=== PATIENT | female | born 1965 | race Caucasian/White ===

== ENCOUNTER 2017-06-23 16:22 | Inpatient (IN) | payer MEDICAID, MEDICARE, OTHER ==
[~2017-06-23] VITALS: Ht 165.1 cm; Wt 79.4 kg
[2017-06-23 16:34] VITALS: BP 156/96; PULSE 117; RESP 20; TEMP 98.2; O2SAT 96
[2017-06-23] MEDS ORDERED: SODIUM CHLOR 0.9% 1000 ML INJ 1,000 ML IV SCH (16:41)
[2017-06-23] MEDS ORDERED: ONDANSETRON HCL 4 MG/2 ML VIAL IVP ONE (16:45)
[2017-06-23] MEDS ORDERED: MORPHINE SULFATE 4 MG/ML INJ IV PUSH ONE ×2 (16:45→17:45)
[2017-06-23] MEDS ORDERED: LISI-515 PO (16:49)
[2017-06-23] MEDS ORDERED: CYMB60CA PO (16:49)
[2017-06-23] MEDS ORDERED: ADVA500A INH (16:49)
[2017-06-23] MEDS ORDERED: ALBUAER3 INH (16:49)
[2017-06-23] MEDS ORDERED: MONT10TA2 PO (16:49)
[2017-06-23 17:07] VITALS: O2SAT 97
--- NOTE | 2017-06-23 17:07 | PD ---
HPI Chief Complaint: GI Complaint Time Seen by Provider: 16:41 Travel History International Travel<30 days: No Contact w/Intl Traveler<30days: No Traveled to known affect area: No History of Present Illness HPI Patient gives a history of intermittent episodes of abdominal pain and left flank pain since about a month ago. Today the patient stated that she could just no longer take the pain, and she also noted some bright red blood per stool. She describes the pain as sharp, left flank radiating towards the front , 8 out of 10. Patient denies any associated alleviating or aggravating factors. Patient denies any associated factors such as fever, nausea vomiting, chest pain, headache. Primary care physician is Dr. Sutherland No known drug allergy Past medical history significant for hypertension, appendectomy, 2 hernia repairs colitis, patient is not on any maintenance medication for her colitis. PFSH Past Medical History Asthma: Yes Autoimmune Disease: Yes (UC) Anxiety: Yes Hypertension: Yes Tetanus Vaccination: Unknown Influenza Vaccination: No ?: Not Past Surgical History Abdominal Surgery: Yes (HERNIA REPAIR X 2) Appendectomy: Yes Other Surgery: Yes (THROAT SX) Social History Alcohol Use: Yes (2X WEEK) Tobacco Use: Yes (1-2 PPD) Substance Use: No Allergies-Medications (Allergen,Severity, Reaction): Coded Allergies: No Known Allergies (Unverified , 06/23/17) Reported Meds & Prescriptions Reported Meds & Active Scripts Active Reported Advair Diskus Inh (Fluticasone-Salmeterol Inh) 500-50 Mcg/Blist Aer 1 Puff INH BID Rinse mouth after use. Proair Hfa 8.5 GM Inh (Albuterol Sulfate) 90 Mcg/Act Aer 1 Puff INH Q4H PRN 108 mcg/actuation Cymbalta DR (Duloxetine HCl) 60 Mg Capdr 60 Mg PO BID Lisinopril 20 Mg Tab 20 Mg PO DAILY Singulair (Montelukast Sodium) 10 Mg Tab 10 Mg PO HS Review of Systems General / Constitutional: No: Fever Eyes: No: Visual changes HENT: No: Headaches Cardiovascular: No: Chest Pain or Discomfort Respiratory: No: Shortness of Breath Gastrointestinal: No: Abdominal Pain Genitourinary: Positive: Flank Pain Musculoskeletal: No: Pain Skin: No Rash Neurologic: No: Weakness Psychiatric: No: Depression Endocrine: No: Polydipsia Hematologic/Lymphatic: No: Easy Bruising Physical Exam Narrative GENERAL: SKIN: Warm and dry. HEAD: Atraumatic. Normocephalic. EYES: Pupils equal and round. No scleral icterus. No injection or drainage. ENT: No nasal bleeding or discharge. Mucous membranes pink and moist. NECK: Trachea midline. No JVD. CARDIOVASCULAR: Regular rate and rhythm. RESPIRATORY: No accessory muscle use. Clear to auscultation. Breath sounds equal bilaterally. GASTROINTESTINAL: Abdomen soft, non-tender, nondistended. RN at bedside during examination, rectal was grossly positive and heme-positive as well MUSCULOSKELETAL: Extremities without clubbing, cyanosis, or edema. No obvious deformities. NEUROLOGICAL: Awake and alert. No obvious cranial nerve deficits. Motor grossly within normal limits. Five out of 5 muscle strength in the arms and legs. Normal speech. PSYCHIATRIC: Appropriate mood and affect; insight and judgment normal. Data Data Last Documented VS Vital Signs Date Time Temp Pulse Resp B/P (MAP) Pulse Ox O2 Delivery O2 Flow Rate FiO2 06/23/17 17:07 97 Room Air 06/23/17 16:34 98.2 117 20 156/96 (116) Orders Orders Complete Blood Count With Diff (06/23/17 16:41) Comprehensive Metabolic Panel (06/23/17 16:41) Lipase (06/23/17 16:41) Prothrombin Time / Inr (Pt) (06/23/17 16:41) Act Partial Throm Time (Ptt) (06/23/17 16:41) Ct Abd/Pel W/O Iv Contrast (06/23/17 16:41) Iv Access Insert/Monitor (06/23/17 16:41) Ecg Monitoring (06/23/17 16:41) Oximetry (06/23/17 16:41) NPO (06/23/17 16:41) Morphine Inj (Morphine Inj) (06/23/17 16:45) Ondansetron Inj (Zofran Inj) (06/23/17 16:45) Sodium Chlor 0.9% 1000 Ml Inj (Ns 1000 M (06/23/17 16:41) Type And Screen (06/23/17 16:41) Ct Thorax/ Chest Wo Iv Contras (06/23/17 17:28) Morphine Inj (Morphine Inj) (06/23/17 17:45) Admit To Inpatient (06/23/17 ) Vital Signs (Adult) TREVON.Q4H (06/23/17 18:26) Activity Oob With Assistance (06/23/17 18:26) Inpatient Certification (06/23/17 ) Consult Medical Oncology (06/23/17 ) Albuterol Hfa Inh (Proair Hfa Inh) (06/23/17 18:30) Duloxetine Dr (Oliverallillie Jacobo) (06/23/17 21:00) Montelukast (Singulair) (06/23/17 21:00) (Nf) Fluticasone-Salmeterol Inh (Advair (06/23/17 21:00) Complete Blood Count With Diff (06/24/17 06:00) Admit Order (Ed Use Only) (06/23/17 18:30) Consult Gastroenterology (06/23/17 ) Npo After Midnight W/ Po Meds (06/23/17 Dinner) Acetamin-Hydrocod 325-7.5 Mg ([place] 7.5 (06/23/17 18:45) Morphine Inj (Morphine Inj) (06/23/17 18:45) (Hub Use Only)Inp Phy Cons/Ref (06/23/17 ) (Hub Use Only)Inp Phy Cons/Ref (06/23/17 ) Labs Laboratory Tests Test 06/23/17 16:55 White Blood Count 13.6 TH/MM3 Red Blood Count 4.72 MIL/MM3 Hemoglobin 13.3 GM/DL Hematocrit 39.5 % Mean Corpuscular Volume 83.8 FL Mean Corpuscular Hemoglobin 28.2 PG Mean Corpuscular Hemoglobin Concent 33.7 % Red Cell Distribution Width 12.4 % Platelet Count 329 TH/MM3 Mean Platelet Volume 8.2 FL Neutrophils (%) (Auto) 70.0 % Lymphocytes (%) (Auto) 16.6 % Monocytes (%) (Auto) 4.7 % Eosinophils (%) (Auto) 4.8 % Basophils (%) (Auto) 3.9 % Neutrophils # (Auto) 9.5 TH/MM3 Lymphocytes # (Auto) 2.3 TH/MM3 Monocytes # (Auto) 0.6 TH/MM3 Eosinophils # (Auto) 0.7 TH/MM3 Basophils # (Auto) 0.5 TH/MM3 CBC Comment DIFF FINAL Differential Comment Prothrombin Time 10.2 SEC Prothromb Time International Ratio 1.0 RATIO Activated Partial Thromboplast Time 27.0 SEC Blood Urea Nitrogen 11 MG/DL Creatinine 0.59 MG/DL Random Glucose 98 MG/DL Total Protein 7.7 GM/DL Albumin 3.4 GM/DL Calcium Level 8.7 MG/DL Alkaline Phosphatase 97 U/L Aspartate Amino Transf (AST/SGOT) 10 U/L Alanine Aminotransferase (ALT/SGPT) 15 U/L Total Bilirubin 0.4 MG/DL Sodium Level 137 MEQ/L Potassium Level 3.7 MEQ/L Chloride Level 106 MEQ/L Carbon Dioxide Level 23.9 MEQ/L Anion Gap 7 MEQ/L Estimat Glomerular Filtration Rate 107 ML/MIN Lipase 89 U/L MDM Medical Decision Making Medical Screen Exam Complete: Yes Emergency Medical Condition: Yes Medical Record Reviewed: Yes Differential Diagnosis Renal colic versus pyelonephritis versus UTI versus colitis versus diverticulitis versus perforation versus abscess Narrative Course CBC shows mild leukocytosis of 13.6, but without any left shift, no anemia and normal platelet count Coagulation profile within normal limits Electrolytes within normal limits, normal kidney liver and pancreatic functions Currently CT abdomen pelvis and chest are pending as of 173 CT abdomen shows a large mass in the medial segment of the right middle lobe, large left adrenal mass with numerous lymph nodes in the left periaortic region as per radiology report 1758 CT chest shows large mass medial aspect right middle lobe malignant until proven otherwise 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 Diagnosis Primary Impression: Right lung mass Additional Impression: Left adrenal mass Admitting Information Admitting Physician Requests: Admit Jonathan López MD Jun 23, 2017 17:07
[2017-06-23 17:10] LABS: AUTOMATED NEUTROPHIL # 9.5 TH/MM3 (1.8-7.7); BASOPHIL # 0.5 TH/MM3 (0-0.2); BASOPHIL % 3.9 % (0.0-2.0); EOSINOPHIL # 0.7 TH/MM3 (0-0.4); EOSINOPHIL % 4.8 % (0.0-4.0); HEMATOCRIT 39.5 % (35.0-46.0); HEMOGLOBIN 13.3 GM/DL (11.6-15.3); LYMPH % 16.6 % (9.0-44.0); LYMPHOCYTE # 2.3 TH/MM3 (1.0-4.8); MEAN CELL VOLUME 83.8 FL (80.0-100.0); MEAN CORPUSCULAR HEMOGLOBIN 28.2 PG (27.0-34.0); MEAN CORPUSCULAR HGB CONC 33.7 % (32.0-36.0); MEAN PLATELET VOLUME 8.2 FL (7.0-11.0); MONO % 4.7 % (0.0-8.0); MONOCYTE # 0.6 TH/MM3 (0-0.9); PLATELET COUNT 329 TH/MM3 (150-450); RED BLOOD COUNT 4.72 MIL/MM3 (4.00-5.30); RED CELL DISTRIBUTION WIDTH 12.4 % (11.6-17.2); WHITE BLOOD COUNT 13.6 TH/MM3 (4.0-11.0)
[2017-06-23 17:18] LABS: CHLORIDE 106 MEQ/L (98-107); SODIUM (NA) 137 MEQ/L (136-145)
[2017-06-23 17:21] LABS: CALCIUM 8.7 MG/DL (8.5-10.1)
[2017-06-23 17:22] LABS: ALBUMIN 3.4 GM/DL (3.4-5.0); BICARBONATE 23.9 MEQ/L (21.0-32.0); BLOOD UREA NITROGEN 11 MG/DL (7-18); GLUCOSE,RANDOM 98 MG/DL (74-106)
[2017-06-23 17:23] LABS: PROTHROMBIN TIME - PATIENT 10.2 SEC (9.8-11.6)
[2017-06-23 17:25] LABS: ALT (GPT) 15 U/L (10-53); AST (GOT) 10 U/L (15-37); CREATININE 0.59 MG/DL (0.50-1.00); GLOMERULAR FILTRATION RATE 107 ML/MIN (>89)
[2017-06-23 17:26] LABS: TOTAL BILIRUBIN ADULT 0.4 MG/DL (0.2-1.0); TOTAL PROTEIN 7.7 GM/DL (6.4-8.2)
[2017-06-23 17:28] LABS: ALKALINE PHOSPHATASE 97 U/L (45-117)
--- NOTE | 2017-06-23 17:48 | RADRPT ---
EXAM DATE/TIME: 06/23/2017 17:18 [facility] COMPARISON: No previous studies available for comparison. INDICATIONS : Nausea, vomiting with left flank pain. ORAL CONTRAST: No oral contrast ingested. RADIATION DOSE: 17.44 CTDIvol (mGy) MEDICAL HISTORY : None SURGICAL HISTORY : Hernia repair. ENCOUNTER: Initial ACUITY: 1 month PAIN SCALE: 6/10 LOCATION: Left flank TECHNIQUE: Volumetric scanning of the abdomen and pelvis was performed. Using automated exposure control and ad justment of the mA and/or kV according to patient size, radiation dose was kept as low as reasonably achievable to obtain optimal diagnostic quality images. DICOM format image data is available electro nically for review and comparison. FINDINGS: LOWER LUNGS: There is abrupt cutoff of the medial segment of the right middle lobe bronchus with a peripheral mass almost certainly malignant measuring 5 x 7.6 cm across. LIVER: Homogeneous density without lesion. There is no dilation of the biliary tree. No calcified gallston es. SPLEEN: Normal size without lesion. PANCREAS: Within normal limits. KIDNEYS: The left kidney is enlarged with significant perinephric stranding. There is a left perihilar mass wi th conceivably could be obstructing the left renal vein. There number of lymph nodes in the left para renal region ADRENAL GLANDS: 5.5 x 6.7 cm mass in the left adrenal gland almost certainly metastatic lesion.. VASCULAR: There is no aortic aneurysm. BOWEL/MESENTERY: The stomach, small bowel, and colon demonstrate no acute abnormality. There is no free intraperitone al air or fluid. ABDOMINAL WALL: Within normal limits. RETROPERITONEUM: There is no lymphadenopathy. BLADDER: No wall thickening or mass. REPRODUCTIVE: Within normal limits. INGUINAL: There is no lymphadenopathy or hernia. MUSCULOSKELETAL: Within normal limits for patient age. CONCLUSION: Large mass in the medial segment of the right middle lobe. Large left adrenal mass with numerous lymp h nodes in the left periaortic region. Neeraj Norwood MD on June 23, 2017 at 17:39 Board Certified Radiologist. This report was verified electronically.
--- NOTE | 2017-06-23 17:50 | RADRPT ---
EXAM DATE/TIME: 06/23/2017 17:26 [facility] COMPARISON: No previous studies available for comparison. INDICATIONS : Abdnormal lung findings. Previous hemoptysis. Evaluate for mass. RADIATION DOSE: 13.31 CTDIvol (mGy) MEDICAL HISTORY : None SURGICAL HISTORY : Hernia repair. ENCOUNTER: Initial ACUITY: 1 day PAIN SCALE: 0/10 LOCATION: chest TECHNIQUE: Volumetric scanning of the chest was performed. Using automated exposure control and adjustment of t he mA and/or kV according to patient size, radiation dose was kept as low as reasonably achievable to obtain optimal diagnostic quality images. DICOM format image data is available electronically for r eview and comparison. Follow-up recommendations for detected pulmonary nodules are based at a minimum on nodule size and pa tient risk factors according to Fleischner Society Guidelines. FINDINGS: LUNGS: 6.2 x 7.9 cm mass in the medial right middle lobe. There is some surrounding obstructive pneumonitis. Bronchoscopy with attention to the medial segment right middle lobe bronchus is recommended. There n umber of positive mediastinal lymph nodes as well. The left lung is clear. Right lower lobe is clear. PLEURAE: There is no pleural thickening or pleural effusion. MEDIASTINUM: Prominent lymph nodes in the middle mediastinum including a 3 cm right paratracheal lymph node. AXILLAE: Within normal limits. No lymphadenopathy. MUSCULOSKELETAL: Within normal limits for patient age. MISCELLANEOUS: Large left adrenal mass metastatic disease to otherwise.. CONCLUSION: Large mass medial aspect right middle lobe, malignant til proven otherwise. 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 Neeraj Norwood MD on June 23, 2017 at 17:46 Board Certified Radiologist. This report was verified electronically.
[2017-06-23] MEDS ORDERED: ALBUTEROL SULFATE 90 MCG/ACT HFA 8 GM INHALER INH PRN (18:30)
[2017-06-23 18:52] VITALS: BP 115/60; PULSE 94; RESP 16; O2SAT 97
[2017-06-23 19:00] VITALS: BP 125/96; PULSE 88; RESP 16; TEMP 98.6; O2SAT 95
[2017-06-23] MEDS: MONTELUKAST SODIUM 10 MG TAB PO SCH (21:31)
[2017-06-23] MEDS: DULoxetine HCl DR 60 MG CAP PO SCH (21:31)
[2017-06-23] MEDS: BUDESONIDE-FORMOTEROL 160/4.5 MCG INHALER INH SCH (21:32)
[2017-06-23] MEDS: MORPHINE SULFATE 4 MG/ML INJ IV PUSH PRN (21:52)
[2017-06-24] VITALS: BP 125/81; PULSE 54; RESP 15; TEMP 97.2; O2SAT 95
[2017-06-24 04:00] VITALS: BP 113/66; PULSE 113; RESP 16; TEMP 98.6; O2SAT 95
[2017-06-24 06:32] LABS: AUTOMATED NEUTROPHIL # 6.7 TH/MM3 (1.8-7.7); BASOPHIL # 0.1 TH/MM3 (0-0.2); BASOPHIL % 1.3 % (0.0-2.0); EOSINOPHIL # 0.9 TH/MM3 (0-0.4); EOSINOPHIL % 9.2 % (0.0-4.0); HEMATOCRIT 35.7 % (35.0-46.0); HEMOGLOBIN 12.1 GM/DL (11.6-15.3); LYMPH % 12.4 % (9.0-44.0); LYMPHOCYTE # 1.2 TH/MM3 (1.0-4.8); MEAN CELL VOLUME 84.2 FL (80.0-100.0); MEAN CORPUSCULAR HEMOGLOBIN 28.5 PG (27.0-34.0); MEAN CORPUSCULAR HGB CONC 33.9 % (32.0-36.0); MEAN PLATELET VOLUME 7.9 FL (7.0-11.0); MONOCYTE # 0.6 TH/MM3 (0-0.9); NEUT % 71.1 % (16.0-70.0); PLATELET COUNT 234 TH/MM3 (150-450); RED BLOOD COUNT 4.24 MIL/MM3 (4.00-5.30); RED CELL DISTRIBUTION WIDTH 12.4 % (11.6-17.2); WHITE BLOOD COUNT 9.5 TH/MM3 (4.0-11.0)
[2017-06-24 08:00] VITALS: BP 134/70; PULSE 83; RESP 20; TEMP 97.4; O2SAT 95
[2017-06-24] MEDS: DULoxetine HCl DR 60 MG CAP PO SCH ×2 (08:02→21:38)
[2017-06-24] MEDS: BUDESONIDE-FORMOTEROL 160/4.5 MCG INHALER INH SCH ×2 (08:04→21:38)
[2017-06-24] MEDS: ACETAMINOPHEN/HYDROcodone 325 MG/7.5 MG TAB PO PRN ×2 (08:04→15:21)
[2017-06-24 11:08] LABS: CARCINOEMBRYONIC ANTIGEN 3.1 NG/ML (0.2-5.0)
[2017-06-24 11:45] LABS: CA 125 17.9 U/ML (0.0-30.2)
[2017-06-24 11:46] LABS: CA 19-9 LESS THAN 1.2 U/ML (0.0-35.0)
[2017-06-24 11:56] LABS: CA 15-3 12.5 U/ML (0.0-32.4)
[2017-06-24 12:00] VITALS: BP 124/73; PULSE 79; RESP 18; TEMP 97.8; O2SAT 95
--- NOTE | 2017-06-24 12:36 | MB ---
cc: Mohamud Mallory MD DATE: 06/24/2017 REASON FOR CONSULTATION: Right lung mass, malignancy suspect. HISTORY OF PRESENT ILLNESS: Ms. Noel is a 52-year-old female who presents to the emergency room with left flank pain and blood in the stool. The patient is being evaluated for same. Chest x-ray and subsequent CT scan of the chest had revealed a large mass in the right middle lobe, as well as a large left adrenal mass with numerous lymph nodes in the left pancreatic region. I am asked to see the patient at this time for same. The patient is a smoker and continues to smoke up until the time of presentation. PAST MEDICAL HISTORY: Hypertension, COPD and/or bronchial asthma, collagen vascular disorder. PAST SURGICAL HISTORY: Previous hernia repair and appendectomy as a child. SOCIAL HISTORY: The patient smokes 1-2 packs a day for the last 30 years or so, has 2 drinks a week, does not use drugs. ALLERGIES: NONE KNOWN TO MEDICATION. MEDICATIONS AT HOME: 1. Include Advair twice daily. 2. ProAir p.r.n. 3. Cymbalta. 4. Lisinopril. 5. Singulair. FAMILY HISTORY: Noncontributory. No history of lung cancer. REVIEW OF SYSTEMS: A 12-point review of systems as per HPI and past history, otherwise negative. PHYSICAL EXAMINATION: GENERAL: Patient alert. VITAL SIGNS: Temperature 98, pulse 90, respirations 20, blood pressure 150/90, oxygen saturation 97% on room air. HEENT: Exam unremarkable. Eyes without icterus. NECK: Without adenopathy, thyroid enlargement. CHEST: A few scattered rhonchi bilaterally. CARDIAC: PMI distant. S1, S2 audible. No murmur. No rub. ABDOMEN: Lax, audible bowel sounds. PSYCHIATRIC: No clubbing, cyanosis, or edema. LABORATORY DATA: White count 13,000; hemoglobin 13; hematocrit 39; platelets 329,000. Sodium 137, potassium 3.7, BUN 11, creatinine 0.6. IMPRESSION: 1. Right lung mass, malignancy suspect. 2. Chronic obstructive pulmonary disease. 3. Tobacco abuse. 4. Hypertension. PLAN: Patient will require tissue diagnosis. Bronchoscopic examination would be the simplest approach at this time. Procedure, complications were discussed with the patient. She is agreeable to proceed at this time. Meanwhile, bronchodilator therapy should be continued. We will follow the patient's course, along with you and depending on progress, proceed further. I do thank you for asking me to partake in Mrs. Noel's care. MD JAMIL Nathan/LIDIA , 11:58 AM , 12:36 PM
[2017-06-24] MEDS ORDERED: IOHEXOL 350 MG/ML 10 ML VIAL (for RAD DIAG) IVCONTRAST ONE (12:52)
--- NOTE | 2017-06-24 12:58 | RADRPT ---
EXAM DATE/TIME: 06/24/2017 12:35 [facility] COMPARISON: No previous studies available for comparison. INDICATIONS : Metastatic workup, right headaches IV CONTRAST: 75 cc Omnipaque 350 (iohexol) IV RADIATION DOSE: 54.77 CTDIvol (mGy) MEDICAL HISTORY : Hypertension. Ulcerative colitis. Asthma SURGICAL HISTORY : Appendectomy. Sami hips, throat. ENCOUNTER: Initial ACUITY: 1 day PAIN SCALE: 3/10 LOCATION: Right cranial TECHNIQUE: Multiple contiguous axial images were obtained of the head. Using automated exposure control and adj ustment of the mA and/or kV according to patient size, radiation dose was kept as low as reasonably a chievable to obtain optimal diagnostic quality images. DICOM format image data is available electro nically for review and comparison. FINDINGS: CEREBRUM: The ventricles are normal for age. No evidence of midline shift, cerebral edema or blood products. No extra-axial fluid collections are seen. POSTERIOR FOSSA: The cerebellum and brainstem are intact. The 4th ventricle is midline. The cerebellar pontine angle is unremarkable. EXTRACRANIAL: The visualized portion of the orbits is intact. SKULL: The calvaria is intact. No evidence of skull fracture. POST CONTRAST: No abnormal areas of parenchymal or dural enhancement. No evidence of blood-brain barrier breakdown. CONCLUSION: No acute disease. Jeff Michel MD on June 24, 2017 at 12:54 Board Certified Radiologist. This report was verified electronically.
--- NOTE | 2017-06-24 14:34 | HHI.HP ---
[facility] No Primary Care Physician Admission Diagnosis LUNG MASS WITH METS TO LEFT ADRENAL Diagnoses: (1) Lung mass Diagnosis: Principal (2) Adrenal mass Diagnosis: Principal (3) Abdominal pain Diagnosis: Principal (4) Flank pain Diagnosis: Principal Travel History International Travel<30 Days: No Contact w/Intl Traveler <30 Da: No Traveled to Known Affected Are: No History of Present Illness Mrs. Noel is a 52-year-old female. She came in the hospital specifically for left sided abdominal pain and flank pain. Etiology of her flank pain she thought would be related to diverticulitis. Imaging showed a right lung mass and left adrenal mass. Etiology at this point is suspected to be related to the left adrenal mass. Masses are suspected to be related to cancer. Patient smokes 1-2 packs of cigarettes per day. No history of cancer in the patient's family. She has a paternal grandmother that had COPD. She also has a paternal grandfather that had coronary artery disease. No other complaints today. No previous history of cancer. No active hemoptysis at this point but she reports that previously about a week ago she had hemoptysis. Review of Systems Constitutional: DENIES: Fatigue, Fever, Chills Eyes: DENIES: Blurred vision, Diplopia, Eye inflammation, Eye pain Respiratory: COMPLAINS OF: Hemoptysis, DENIES: Cough, Snoring, Wheezing Cardiovascular: DENIES: Chest pain, Palpitations, Syncope Gastrointestinal: COMPLAINS OF: Abdominal pain, DENIES: Black stools, Bloody stools Musculoskeletal: DENIES: Joint pain, Muscle aches, Stiffness, Joint Swelling Integumentary: DENIES: Abnormal pigmentation, Pruritus, Rash, Nail changes Hematologic/lymphatic: DENIES: Bruising, Lymphadenopathy Immunologic/allergic: DENIES: Eczema, Urticaria Neurologic: DENIES: Abnormal gait, Headache, Paresthesias Psychiatric: DENIES: Anxiety, Confusion, Hallucinations Past Family Social History Past Medical History Asthma Hypertension General anxiety disorder Ulcerative colitis Past Surgical History Hernia repair 2 Appendectomy Throat surgery Reported Medications Reported Meds & Active Scripts Active Reported Advair Diskus Inh (Fluticasone-Salmeterol Inh) 500-50 Mcg/Blist Aer 1 Puff INH BID Rinse mouth after use. Proair Hfa 8.5 GM Inh (Albuterol Sulfate) 90 Mcg/Act Aer 1 Puff INH Q4H PRN 108 mcg/actuation Cymbalta DR (Duloxetine HCl) 60 Mg Capdr 60 Mg PO BID Lisinopril 20 Mg Tab 20 Mg PO DAILY Singulair (Montelukast Sodium) 10 Mg Tab 10 Mg PO HS Allergies: Coded Allergies: No Known Allergies (Unverified , 06/23/17) Active Ordered Medications Administered Medications Medications (Trade) Dose Ordered Sig/Amy Route PRN Reason Start Time Stop Time Status Last Admin Dose Admin Duloxetine HCl (Cymbalta Dr) 60 mg BID PO 06/23/17 21:00 06/24/17 08:02 Montelukast Sodium (Singulair) 10 mg HS PO 06/23/17 21:00 06/23/17 21:31 Budesonide/ Formoterol Fumarate (Symbicort 160-4.5 Mcg Inh) 2 puff BID INH 06/23/17 21:00 06/24/17 08:04 Acetaminophen/ Hydrocodone Bitart ([place] 7.5-325 Mg) 1 tab Q4H PRN PO pain 06/23/17 18:45 06/24/17 08:04 Morphine Sulfate (Morphine Inj) 4 mg Q3H PRN IV PUSH breakthru pain 06/23/17 18:45 06/23/17 21:52 Family History COPD in paternal grandmother Coronary artery disease in maternal grandfather Social History Patient smokes 1-2 packs per day Occasional alcohol use No illicit drug abuse Physical Exam Vital Signs Vital Signs Date Time Temp Pulse Resp B/P (MAP) Pulse Ox O2 Delivery O2 Flow Rate FiO2 06/24/17 12:00 97.8 79 18 124/73 (90) 95 06/24/17 08:00 97.4 83 20 134/70 (91) 95 06/24/17 04:00 98.6 113 16 113/66 (82) 95 06/24/17 00:00 97.2 54 15 125/81 (96) 95 06/23/17 19:35 06/23/17 19:00 98.6 88 16 125/96 (106) 95 06/23/17 18:52 94 16 115/60 (78) 97 Room Air 06/23/17 17:07 97 Room Air 06/23/17 16:34 98.2 117 20 156/96 (116) 96 Physical Exam GENERAL: NAD, A&Ox3 HEAD: Normocephalic. NECK: Supple, trachea midline. No lymphadenopathy. EYES: No scleral icterus. No injection or drainage. CARDIOVASCULAR: Regular rate and rhythm without murmurs, gallops, or rubs. RESPIRATORY: Breath sounds equal bilaterally. No accessory muscle use. GASTROINTESTINAL: Abdomen soft, non-tender, nondistended. MUSCULOSKELETAL: No cyanosis, or edema. SKIN: Warm and dry. NEURO: No focal neurological deficitis. Laboratory Laboratory Tests Test 06/23/17 16:55 06/24/17 06:02 06/24/17 08:09 White Blood Count 13.6 9.5 Red Blood Count 4.72 4.24 Hemoglobin 13.3 12.1 Hematocrit 39.5 35.7 Mean Corpuscular Volume 83.8 84.2 Mean Corpuscular Hemoglobin 28.2 28.5 Mean Corpuscular Hemoglobin Concent 33.7 33.9 Red Cell Distribution Width 12.4 12.4 Platelet Count 329 234 Mean Platelet Volume 8.2 7.9 Neutrophils (%) (Auto) 70.0 71.1 Lymphocytes (%) (Auto) 16.6 12.4 Monocytes (%) (Auto) 4.7 6.0 Eosinophils (%) (Auto) 4.8 9.2 Basophils (%) (Auto) 3.9 1.3 Neutrophils # (Auto) 9.5 6.7 Lymphocytes # (Auto) 2.3 1.2 Monocytes # (Auto) 0.6 0.6 Eosinophils # (Auto) 0.7 0.9 Basophils # (Auto) 0.5 0.1 CBC Comment DIFF FINAL AUTO DIFF Differential Comment AUTO DIFF CONFIRMED Prothrombin Time 10.2 Prothromb Time International Ratio 1.0 Activated Partial Thromboplast Time 27.0 Blood Urea Nitrogen 11 Creatinine 0.59 Random Glucose 98 Total Protein 7.7 Albumin 3.4 Calcium Level 8.7 Alkaline Phosphatase 97 Aspartate Amino Transf (AST/SGOT) 10 Alanine Aminotransferase (ALT/SGPT) 15 Total Bilirubin 0.4 Sodium Level 137 Potassium Level 3.7 Chloride Level 106 Carbon Dioxide Level 23.9 Anion Gap 7 Estimat Glomerular Filtration Rate 107 Lipase 89 Lactate Dehydrogenase 206 Tumor Marker Alpha Fetoprotein 2.5 Carcinoembryonic Antigen 3.1 CA 15-3 Antigen 12.5 CA 19-9 Antigen LESS THAN 1.2 CA 125 Antigen 17.9 Result Diagram: 06/24/17 0602 06/23/17 1655 Imaging Last Impressions Head CT 06/24/17 0000 Signed Impressions: Service Date/Time: Saturday, June 24, 2017 12:35 - CONCLUSION: No acute disease. Jeff Michel MD Chest CT 06/23/17 1728 Signed Impressions: Service Date/Time: Friday, June 23, 2017 17:26 - CONCLUSION: Large mass medial aspect right middle lobe, malignant til proven otherwise. Metastatic disease to left adrenal gland. Neeraj Norwood MD Abdomen/Pelvis CT 06/23/17 1641 Signed Impressions: Service Date/Time: Friday, June 23, 2017 17:18 - CONCLUSION: Large mass in the medial segment of the right middle lobe. Large left adrenal mass with numerous lymph nodes in the left periaortic region. Neeraj Norwood MD Caprezai VTE Risk Assessment Caprini VTE Risk Assessment: Mod/High Risk (score >= 2) Caprini Risk Assessment Model Point Value = 1 Point Value = 2 Point Value = 3 Point Value = 5 Age 41-60 Minor surgery BMI > 25 kg/m2 Swollen legs Varicose veins or History of unexplained or recurrent spontaneous Oral contraceptives or hormone replacement Sepsis (< 1 month) Serious lung disease, including pneumonia (< 1 month) Abnormal pulmonary function Acute myocardial infarction Congestive heart failure (< 1 month) History of inflammatory bowel disease Medical patient at bed rest Age 61-74 Arthroscopic surgery Major open surgery (> 45 min) Laparoscopic surgery (> 45 min) Malignancy Confined to bed (> 72 hours) Immobilizing plaster cast Central venous access Age >= 75 History of VTE Family history of VTE Factor V Leiden Prothrombin [id number] Lupus anticoagulant Anticardiolipin antibodies Elevated serum homocysteine Heparin-induced thrombocytopenia Other congenital or acquired thrombophilia Stroke (< 1 month) Elective arthroplasty Hip, pelvis, or leg fracture Acute spinal cord injury (< 1 month) Prophylaxis Regimen Total Risk Factor Score Risk Level Prophylaxis Regimen 0-1 Low Early ambulation 2 Moderate Order ONE of the following: *Sequential Compression Device (SCD) *Heparin 5000 units SQ BID 3-4 Higher Order ONE of the following medications: *Heparin 5000 units SQ TID *Enoxaparin/Lovenox 40 mg SQ daily (WT < 150 kg, CrCl > 30 mL/min) *Enoxaparin/Lovenox 30 mg SQ daily (WT < 150 kg, CrCl > 10-29 mL/min) *Enoxaparin/Lovenox 30 mg SQ BID (WT < 150 kg, CrCl > 30 mL/min) AND/OR *Sequential Compression Device (SCD) 5 or more Highest Order ONE of the following medications: *Heparin 5000 units SQ TID (Preferred with Epidurals) *Enoxaparin/Lovenox 40 mg SQ daily (WT < 150 kg, CrCl > 30 mL/min) *Enoxaparin/Lovenox 30 mg SQ daily (WT < 150 kg, CrCl > 10-29 mL/min) *Enoxaparin/Lovenox 30 mg SQ BID (WT < 150 kg, CrCl > 30 mL/min) AND *Sequential Compression Device (SCD) Assessment and Plan Problem List: (1) Adrenal mass ICD Code: E27.9 - Disorder of adrenal gland, unspecified (2) Abdominal pain ICD Code: R10.9 - Unspecified abdominal pain (3) Lung mass ICD Code: R91.8 - Other nonspecific abnormal finding of lung field (4) Flank pain ICD Code: R10.9 - Unspecified abdominal pain Assessment and Plan 52-year-old female admitted secondary to abdominal pain with findings of adrenal mass and lung mass, recent hemoptysis. Lung mass Adrenal mass Pulmonology consulted Plan for bronchoscopy Plan for biopsy No signs of metastasis to the brain Hemoptysis Monitor for recurrence Avoid blood thinners Hypertension Continue baseline treatment Follow blood pressures Adjust treatments as needed Asthma General anxiety disorder Ulcerative colitis No exacerbations Continue baseline treatments DVT prophylaxis SCDs Blood thinners avoided secondary to hemoptysis Physician Certification 2 Midnight Certification Type: Admission for Inpatient Services Order for Inpatient Services The services are ordered in accordance with Medicare regulations or non- Medicare payer requirements, as applicable. In the case of services not specified as inpatient-only, they are appropriately provided as inpatient services in accordance with the 2-midnight benchmark. Estimated LOS (days): 3 days is the estimated time the patient will need to remain in the hospital, assuming treatment plan goals are met and no additional complications. Post-Hospital Plan: Home Calderon Burton MD Jun 24, 2017 14:34
[2017-06-24 15:51] VITALS: BP 127/80; PULSE 88; RESP 20; TEMP 97; O2SAT 95
[2017-06-24 20:00] VITALS: BP 118/83; PULSE 82; RESP 18; TEMP 96.9; O2SAT 96
[2017-06-24] MEDS: MONTELUKAST SODIUM 10 MG TAB PO SCH (21:38)
[2017-06-24] MEDS: MORPHINE SULFATE 4 MG/ML INJ IV PUSH PRN (21:56)
[2017-06-24] MEDS ORDERED: ALPRAZolam 0.5 MG TAB PO ONE (22:15)
[2017-06-25] VITALS (7 sets, daily range): BP systolic 125–146; BP diastolic 80–89; PULSE 77–93; RESP 16–20; TEMP 96.8–98.7; O2SAT 93–97
[2017-06-25 07:01] LABS: AUTOMATED NEUTROPHIL # 4.9 TH/MM3 (1.8-7.7); BASOPHIL # 0.1 TH/MM3 (0-0.2); BASOPHIL % 1.2 % (0.0-2.0); EOSINOPHIL # 0.7 TH/MM3 (0-0.4); EOSINOPHIL % 8.8 % (0.0-4.0); HEMATOCRIT 34.9 % (35.0-46.0); HEMOGLOBIN 12.2 GM/DL (11.6-15.3); LYMPH % 16.7 % (9.0-44.0); LYMPHOCYTE # 1.2 TH/MM3 (1.0-4.8); MEAN CELL VOLUME 84.6 FL (80.0-100.0); MEAN CORPUSCULAR HEMOGLOBIN 29.5 PG (27.0-34.0); MEAN CORPUSCULAR HGB CONC 34.8 % (32.0-36.0); MEAN PLATELET VOLUME 8.2 FL (7.0-11.0); MONO % 7.1 % (0.0-8.0); MONOCYTE # 0.5 TH/MM3 (0-0.9); NEUT % 66.2 % (16.0-70.0); PLATELET COUNT 272 TH/MM3 (150-450); RED BLOOD COUNT 4.12 MIL/MM3 (4.00-5.30); RED CELL DISTRIBUTION WIDTH 12.5 % (11.6-17.2); WHITE BLOOD COUNT 7.4 TH/MM3 (4.0-11.0)
[2017-06-25 07:09] LABS: CHLORIDE 109 MEQ/L (98-107); SODIUM (NA) 142 MEQ/L (136-145)
[2017-06-25 07:17] LABS: CALCIUM 8.6 MG/DL (8.5-10.1)
[2017-06-25 07:18] LABS: ALBUMIN 2.9 GM/DL (3.4-5.0); BICARBONATE 29.2 MEQ/L (21.0-32.0); BLOOD UREA NITROGEN 7 MG/DL (7-18); GLUCOSE,RANDOM 102 MG/DL (74-106)
[2017-06-25 07:21] LABS: ALT (GPT) 11 U/L (10-53); AST (GOT) 11 U/L (15-37); CREATININE 0.47 MG/DL (0.50-1.00); GLOMERULAR FILTRATION RATE 139 ML/MIN (>89)
[2017-06-25 07:22] LABS: TOTAL BILIRUBIN ADULT 0.5 MG/DL (0.2-1.0); TOTAL PROTEIN 6.5 GM/DL (6.4-8.2)
[2017-06-25 07:24] LABS: ALKALINE PHOSPHATASE 77 U/L (45-117)
--- NOTE | 2017-06-25 07:48 | MB ---
cc: Nory Kennedy MD DATE: 06/24/2017 CHIEF COMPLAINT: Suspicious for metastatic lung cancer. HISTORY OF PRESENT ILLNESS: Ms. Noel is a 52-year-old lady with a history of depression, anxiety, posttraumatic stress disorder, lung disease, hypertension, and ulcerative colitis, who presented to [facility] on 06/23/2017 with left-sided abdominal and flank pain. CT scan obtained during the emergency room visit revealed that she had a 5.5 x 6.7 cm mass in the adrenal gland, which is almost certainly a metastatic lesion, also revealed numerous lymph nodes in the left paraortic region. CT chest showed a 6.2 x 7.9 cm mass in the medial right lobe with some surrounding obstructive pneumonitis. There are a number of positive mediastinal lymph nodes as well. Head CT obtained with no acute abnormalities. Pulmonary team with Dr. Mallory has been consulted. He will performed a bronchoscopic examination as well since there is evidence that she has some obstruction. LABORATORY STUDIES: Reveal white blood cell count 9.5; hemoglobin 12.1; platelet count is 234,000. Differential with elevated absolute eosinophil count. BMP with normal renal and liver function. Coags also within normal limits. PAST MEDICAL HISTORY: 1. Tobacco abuse. 2. Hypertension. 3. Asthma/chronic obstructive pulmonary disease. 4. Depression/anxiety/PTSD. 5. Hypertension. 6. Ulcerative colitis. PAST SURGICAL HISTORY: 1. Appendectomy. 2. ENT surgery, tooth removal. 3. Hernia repair. SOCIAL HISTORY: The patient reports that she smoked 1-2 pack per day for about the past 30 years. She has 1 to 2 drinks a week. Denies drug use. She moved down to the [facility] from [place] to be near her daughter. She has had limited medical followup over the past several years. ALLERGIES: NO KNOWN DRUG ALLERGIES. HOME MEDICATIONS: 1. Cymbalta. 2. Albuterol inhaler. 3. Advair inhaler. 4. Lisinopril. 5. Singulair. FAMILY HISTORY: No family history of malignancy. REVIEW OF SYSTEMS: As above in the HPI. PHYSICAL EXAMINATION: GENERAL: Well-developed, well-nourished lady, in no acute distress. NECK: Supple. No palpable lymphadenopathy. CHEST: Clear to auscultation bilaterally. CARDIOVASCULAR: Regular rate and rhythm. No murmurs. ABDOMEN: Soft, nontender, nondistended. Bowel sounds present. EXTREMITIES: Without edema. PSYCHIATRIC: Appropriate mood and affect. NEUROLOGIC: Grossly nonfocal. ASSESSMENT AND PLAN: Highly suspicious for metastatic lung cancer. She has been consulted on by the pulmonary team. It appears that her cancer is metastatic to the abdominal lymph nodes as well as the left adrenal gland. There is evidence of some obstruction. She has been evaluated by Dr. Mallory, who will plan for bronchoscopy which will provide us with the simplest method of both obtaining a tissue diagnosis, as well as relieving any obstruction that would be present in her right middle lobe. Inpatient oncology service will continue to follow and once true pathologic diagnosis by team, we will discuss further treatment and management. MD CHRISTO Rothman/LIDIA , 05:50 AM , 07:48 AM LINDA
[2017-06-25] MEDS: BUDESONIDE-FORMOTEROL 160/4.5 MCG INHALER INH SCH ×2 (08:48→21:17)
[2017-06-25] MEDS: ACETAMINOPHEN/HYDROcodone 325 MG/7.5 MG TAB PO PRN ×3 (08:49→21:18)
[2017-06-25] MEDS: DULoxetine HCl DR 60 MG CAP PO SCH ×2 (08:49→21:17)
[2017-06-25] MEDS ORDERED: MAGNESIUM HYDROXIDE SUSP 30 ML CUP PO PRN (09:15)
[2017-06-25] MEDS ORDERED: ACETAMINOPHEN 325 MG TAB PO PRN (09:15)
[2017-06-25] MEDS ORDERED: DOCUSATE SODIUM 100 MG CAP PO PRN (09:15)
[2017-06-25] MEDS ORDERED: CALCIUM CARBONATE 500 MG CHEWABLE TAB CHEW PRN (09:15)
[2017-06-25] MEDS ORDERED: ONDANSETRON HCL 4 MG/2 ML VIAL IV PUSH PRN (09:15)
--- NOTE | 2017-06-25 10:05 | HHI.GIFU ---
Subjective Remarks Pt resting in bed. Anxious after talking to oncologist. NO rectal bleeding at this time, has not had bm. No abd pain. She is c/o that her back hurts on the left side. (Mary Jane Acosta) Objective Vitals I&O Vital Signs Date Time Temp Pulse Resp B/P (MAP) Pulse Ox O2 Delivery O2 Flow Rate FiO2 06/25/17 08:15 97.1 93 20 126/80 (95) 93 06/24/17 20:00 96.9 82 18 118/83 (95) 96 06/24/17 15:51 97.0 88 20 127/80 (96) 95 06/24/17 12:00 97.8 79 18 124/73 (90) 95 I/O 06/24/17 06/24/17 06/24/17 06/25/17 06/25/17 06/25/17 07:00 15:00 23:00 07:00 15:00 23:00 Intake Total 0 ml 2 ml Balance 0 ml 2 ml Intake Oral 0 ml IV Total 2 ml Laboratory Laboratory Tests Test 06/25/17 06:37 White Blood Count 7.4 Red Blood Count 4.12 Hemoglobin 12.2 Hematocrit 34.9 Mean Corpuscular Volume 84.6 Mean Corpuscular Hemoglobin 29.5 Mean Corpuscular Hemoglobin Concent 34.8 Red Cell Distribution Width 12.5 Platelet Count 272 Mean Platelet Volume 8.2 Neutrophils (%) (Auto) 66.2 Lymphocytes (%) (Auto) 16.7 Monocytes (%) (Auto) 7.1 Eosinophils (%) (Auto) 8.8 Basophils (%) (Auto) 1.2 Neutrophils # (Auto) 4.9 Lymphocytes # (Auto) 1.2 Monocytes # (Auto) 0.5 Eosinophils # (Auto) 0.7 Basophils # (Auto) 0.1 CBC Comment DIFF FINAL Differential Comment Blood Urea Nitrogen 7 Creatinine 0.47 Random Glucose 102 Total Protein 6.5 Albumin 2.9 Calcium Level 8.6 Alkaline Phosphatase 77 Aspartate Amino Transf (AST/SGOT) 11 Alanine Aminotransferase (ALT/SGPT) 11 Total Bilirubin 0.5 Sodium Level 142 Potassium Level 3.8 Chloride Level 109 Carbon Dioxide Level 29.2 Anion Gap 4 Estimat Glomerular Filtration Rate 139 Imaging Last Impressions Head CT 06/24/17 0000 Signed Impressions: Service Date/Time: Saturday, June 24, 2017 12:35 - CONCLUSION: No acute disease. Jeff Michel MD Chest CT 06/23/17 1728 Signed Impressions: Service Date/Time: Friday, June 23, 2017 17:26 - CONCLUSION: Large mass medial aspect right middle lobe, malignant til proven otherwise. Metastatic disease to left adrenal gland. Neeraj Norwood MD Abdomen/Pelvis CT 06/23/17 1641 Signed Impressions: Service Date/Time: Friday, June 23, 2017 17:18 - CONCLUSION: Large mass in the medial segment of the right middle lobe. Large left adrenal mass with numerous lymph nodes in the left periaortic region. Neeraj Norwood MD Physical Exam HEENT: PERRL; normocephalic; atraumatic; no jaundice. CHEST: CTA CARDIAC: RRR ABDOMEN: Soft, nondistended, nontender; no hepatosplenomegaly; bowel sounds are present in all four quadrants. EXTREMITIES: No clubbing, cyanosis, or edema. SKIN: Normal; no rash; no jaundice. MEAT GRADER: No focal deficits; alert and oriented times three. (Mary Jane Acosta) Assessment and Plan Plan ASSESSMENT 52 yo aldy who presented with back pain, let side pain, hemoptysis. GI was consulted for BRBPR. she has hx UC, intermittent bleeding is normal for her and has not been worse than usual. She still has not had a BM but there is no obvious bleeding at this time. her HH is WNL today. Oncology on case, work up in progress for poss metastatic lung ca PLAN - mgmt per oncology - monitor labs - f/u with GI after d/c - GI will sign off. please reconsult if needed pt seen by myself and Dr Buchanan and this note is on his behalf (Mary Jane Acosta) Plan agree with above note, pls call us if there are any new GI issues (Alhaji Buchanan MD) Mary Jane Acosta Jun 25, 2017 10:05 Alhaji Buchanan MD Jun 25, 2017 20:26
--- NOTE | 2017-06-25 11:25 | HHI.PR ---
Subjective Remarks Nursing denies any deterioration since last night. Patient herself is very nervous, says she is in shock with this new finding of possible cancer. Would like something to calm her down to sleep so her "brain can shut off" transiently. Is under pre-existing stress from try to help her daughter as she lives with her and moved down here specifically to live with her. Objective Vital Signs Date Time Temp Pulse Resp B/P (MAP) Pulse Ox O2 Delivery O2 Flow Rate FiO2 06/25/17 09:49 17 06/25/17 08:15 97.1 93 20 126/80 (95) 93 06/24/17 20:00 96.9 82 18 118/83 (95) 96 06/24/17 15:51 97.0 88 20 127/80 (96) 95 06/24/17 12:00 97.8 79 18 124/73 (90) 95 I/O 06/24/17 06/24/17 06/24/17 06/25/17 06/25/17 06/25/17 07:00 15:00 23:00 07:00 15:00 23:00 Intake Total 0 ml 2 ml 120 ml Balance 0 ml 2 ml 120 ml Intake Oral 0 ml 120 ml IV Total 2 ml # Voids 1 Result Diagram: 06/25/17 0637 06/25/17 0637 Objective Remarks Clear lungs bilaterally, unlabored breathing, appears anxious, becomes tearful A/P Assessment and Plan 52-year-old female admitted secondary to abdominal pain with findings of adrenal mass and lung mass, recent hemoptysis. Lung mass Adrenal mass Pulmonology consulted Plan for bronchoscopy for tomorrow with biopsy, transfer order placed for [facility] Oncology recommendations pending procedure/biopsy findings Abd pain - likely 2/2 mass/mets - pain control Hemoptysis Monitor for recurrence Avoid blood thinners Hypertension Continue baseline treatment Follow blood pressures Adjust treatments as needed Asthma General anxiety disorder Ulcerative colitis No exacerbations Continue baseline treatments DVT prophylaxis SCDs Blood thinners avoided secondary to hemoptysis Gregorio Chavez MD Jun 25, 2017 11:25
--- NOTE | 2017-06-25 16:04 | HHI.PR ---
Subjective Remarks ALERT SITTING IN BRD NO SOB Objective Vital Signs Date Time Temp Pulse Resp B/P (MAP) Pulse Ox O2 Delivery O2 Flow Rate FiO2 06/25/17 12:11 96.8 91 20 125/88 (100) 95 06/25/17 09:49 17 06/25/17 08:15 97.1 93 20 126/80 (95) 93 06/24/17 20:00 96.9 82 18 118/83 (95) 96 I/O 06/24/17 06/24/17 06/24/17 06/25/17 06/25/17 06/25/17 07:00 15:00 23:00 07:00 15:00 23:00 Intake Total 0 ml 2 ml 120 ml Balance 0 ml 2 ml 120 ml Intake Oral 0 ml 120 ml IV Total 2 ml # Voids 1 Result Diagram: 06/25/17 0637 06/25/17 0637 Objective Remarks GENERAL: SKIN: Warm and dry. HEAD: Atraumatic. Normocephalic. EYES: Pupils equal and round. No scleral icterus. No injection or drainage. ENT: No nasal bleeding or discharge. Mucous membranes pink and moist. NECK: Trachea midline. No JVD. CARDIOVASCULAR: Regular rate and rhythm. RESPIRATORY: No accessory muscle use. Clear to auscultation. Breath sounds equal bilaterally. GASTROINTESTINAL: Abdomen soft, non-tender, nondistended. Hepatic and splenic margins not palpable. MUSCULOSKELETAL: Extremities without clubbing, cyanosis, or edema. No obvious deformities. NEUROLOGICAL: Awake and alert. No obvious cranial nerve deficits. Motor grossly within normal limits. Five out of 5 muscle strength in the arms and legs. Normal speech. PSYCHIATRIC: Appropriate mood and affect; insight and judgment normal. Assessment and Plan Assessment and Plan IMPRESSION LUNG MASS COPD TOBACCO USE PLAN BRONCHODILATORS NEEDED BRONCHOSCOPY Mohamud Ha MD Jun 25, 2017 16:04
[2017-06-25] MEDS ORDERED: RESP: ALBUTEROL CONC 2.5 MG/0.5 ML NEB NEB SCH (16:15)
[2017-06-25] MEDS ORDERED: RESP: LIDOCAINE HCL 4% PF 5 ML NEB NEB SCH (16:15)
[2017-06-25] MEDS: ALPRAZolam 0.25 MG TAB PO PRN (16:31)
[2017-06-25] MEDS: MONTELUKAST SODIUM 10 MG TAB PO SCH (21:18)
[2017-06-25] MEDS: TEMAZEPAM 15 MG CAP PO PRN (21:18)
[2017-06-25] MEDS ORDERED: CHLORHEXIDINE GLUCONATE 2 % 1 PACK (2 CLOTHS) TOPICAL PRN (21:30)
[2017-06-25] MEDS ORDERED: POVIDONE IODINE 5% (ANTISEPSIS KIT) 4 APPLICATIONS EACH NARE PRN (21:30)
[2017-06-25] MEDS ORDERED: METOPROLOL TARTRATE 25 MG TAB PO PRN (21:30)
[2017-06-25] MEDS ORDERED: SODIUM CHLORID 0.9% 500 ML IV PRN (21:30)
[2017-06-25] MEDS ORDERED: LACTATED RINGER'S 1000 ML IV PRN (21:30)
[2017-06-25 21:36] LABS: AUTOMATED NEUTROPHIL # 5.1 TH/MM3 (1.8-7.7); BASOPHIL # 0.1 TH/MM3 (0-0.2); BASOPHIL % 0.7 % (0.0-2.0); EOSINOPHIL # 0.7 TH/MM3 (0-0.4); EOSINOPHIL % 8.5 % (0.0-4.0); HEMOGLOBIN 12.1 GM/DL (11.6-15.3); LYMPHOCYTE # 1.5 TH/MM3 (1.0-4.8); MEAN CELL VOLUME 84.8 FL (80.0-100.0); MEAN CORPUSCULAR HEMOGLOBIN 28.5 PG (27.0-34.0); MEAN CORPUSCULAR HGB CONC 33.7 % (32.0-36.0); MEAN PLATELET VOLUME 8.2 FL (7.0-11.0); MONO % 7.5 % (0.0-8.0); MONOCYTE # 0.6 TH/MM3 (0-0.9); NEUT % 64.3 % (16.0-70.0); PLATELET COUNT 282 TH/MM3 (150-450); RED BLOOD COUNT 4.24 MIL/MM3 (4.00-5.30); RED CELL DISTRIBUTION WIDTH 13.3 % (11.6-17.2); WHITE BLOOD COUNT 7.9 TH/MM3 (4.0-11.0)
[2017-06-26] VITALS (9 sets, daily range): BP systolic 126–137; BP diastolic 83–92; PULSE 73–114; RESP 16–22; TEMP 98–98.4; O2SAT 94–96
[2017-06-26] MEDS: ALPRAZolam 0.25 MG TAB PO PRN (04:16)
[2017-06-26] MEDS: ACETAMINOPHEN/HYDROcodone 325 MG/7.5 MG TAB PO PRN ×3 (04:16→18:43)
--- NOTE | 2017-06-26 08:18 | MB ---
cc: Alhaji Buchanan MD DATE: 06/24/2017 REASON FOR REFERRAL: abdominal pain HISTORY: A 52-year-old lady who is in the hospital for left-sided abdominal pain and flank pain, questionable etiology. Patient stated that she thought it was diverticulitis and I was asked to see her for that. The patient was found to have a right lung mass and left adrenal mass . The patient smokes for a long time. She denied any other GI symptoms except occasional BRBPR with hemorrhoids. PAST MEDICAL HISTORY: Significant for hypertension, anxiety, questionable ulcerative colitis many years ago (she does not take any medication for that), asthma. MEDICATIONS: Reviewed in the chart. ALLERGIES: NO KNOWN DRUG ALLERGIES. FAMILY HISTORY: Significant for COPD and coronary artery disease. SOCIAL HISTORY: Significant tobacco and alcohol. No drugs. PHYSICAL EXAMINATION: GENERAL: well nourished ABDOMEN: Soft, nondistended, nontender. NEUROLOGIC: Intact. PSYCHIATRIC: Psychologically appropriate. SKIN: No jaundice. LABORATORY DATA: White count 9.5, down from 13.6, hemoglobin 12.1, platelets 234. INR 1.1. Tumor markers are negative. Lipase was normal. Liver function tests are normal. ASSESSMENT AND PLAN: abdominal pain seems to be related possibly to the mass that she has. but colonoscopy can be entertained to rule out active ulcerative colitis, that as an outpatient. Her hemoglobin is stable now and no sign of acitve bleed, or abnormalities in the abdomen. ____on CT scan except the adrenal mass MD TESSA Chavarria/SA/ , 08:20 PM , 08:58 PM MTDSerafin
--- NOTE | 2017-06-26 09:55 | PD.ONC.PN ---
Subjective Subjective Remarks Afebrile overnight. patient resting on stretcher. getting ready to go down for bronchoscopy. she is scared and anxious. she has pain in her left mid back, but is otherwise without complaint. Objective Data Date Time Temp Pulse Resp B/P (MAP) Pulse Ox O2 Delivery O2 Flow Rate FiO2 06/26/17 05:15 16 06/26/17 04:09 98.3 91 16 126/92 (103) 94 06/26/17 04:03 73 06/26/17 00:02 75 06/25/17 23:08 98.7 77 16 127/80 (96) 94 06/25/17 20:09 89 06/25/17 19:50 98.6 88 18 146/86 (106) 95 06/25/17 17:25 97.5 85 20 145/84 (104) 96 06/25/17 16:24 97.7 89 20 132/89 (103) 97 06/25/17 12:11 96.8 91 20 125/88 (100) 95 06/26/17 06/26/17 06/26/17 07:00 15:00 23:00 Intake Total 720 ml Output Total 900 ml Balance -180 ml Result Diagram: 06/25/17 2104 06/25/17 0637 Laboratory Results Laboratory Tests Test 06/25/17 21:04 White Blood Count 7.9 TH/MM3 Red Blood Count 4.24 MIL/MM3 Hemoglobin 12.1 GM/DL Hematocrit 36.0 % Mean Corpuscular Volume 84.8 FL Mean Corpuscular Hemoglobin 28.5 PG Mean Corpuscular Hemoglobin Concent 33.7 % Red Cell Distribution Width 13.3 % Platelet Count 282 TH/MM3 Mean Platelet Volume 8.2 FL Neutrophils (%) (Auto) 64.3 % Lymphocytes (%) (Auto) 19.0 % Monocytes (%) (Auto) 7.5 % Eosinophils (%) (Auto) 8.5 % Basophils (%) (Auto) 0.7 % Neutrophils # (Auto) 5.1 TH/MM3 Lymphocytes # (Auto) 1.5 TH/MM3 Monocytes # (Auto) 0.6 TH/MM3 Eosinophils # (Auto) 0.7 TH/MM3 Basophils # (Auto) 0.1 TH/MM3 CBC Comment DIFF FINAL Differential Comment Prothrombin Time 10.0 SEC Prothromb Time International Ratio 1.0 RATIO Activated Partial Thromboplast Time 27.5 SEC Imaging Studies Last Impressions Head CT 06/24/17 0000 Signed Impressions: Service Date/Time: Saturday, June 24, 2017 12:35 - CONCLUSION: No acute disease. Jeff Michel MD Chest CT 06/23/17 1728 Signed Impressions: Service Date/Time: Friday, June 23, 2017 17:26 - CONCLUSION: Large mass medial aspect right middle lobe, malignant til proven otherwise. Metastatic disease to left adrenal gland. Neeraj Norwood MD Abdomen/Pelvis CT 06/23/17 1641 Signed Impressions: Service Date/Time: Friday, June 23, 2017 17:18 - CONCLUSION: Large mass in the medial segment of the right middle lobe. Large left adrenal mass with numerous lymph nodes in the left periaortic region. Neeraj Norwood MD Administered Medications Medications (Trade) Dose Ordered Sig/Amy Route PRN Reason Start Time Stop Time Status Last Admin Dose Admin Duloxetine HCl (Cymbalta Dr) 60 mg BID PO 06/23/17 21:00 06/25/17 21:17 Montelukast Sodium (Singulair) 10 mg HS PO 06/23/17 21:00 06/25/17 21:18 Budesonide/ Formoterol Fumarate (Symbicort 160-4.5 Mcg Inh) 2 puff BID INH 06/23/17 21:00 06/25/17 21:17 Acetaminophen/ Hydrocodone Bitart ([place] 7.5-325 Mg) 1 tab Q4H PRN PO pain 06/23/17 18:45 06/26/17 04:16 Morphine Sulfate (Morphine Inj) 4 mg Q3H PRN IV PUSH breakthru pain 06/23/17 18:45 06/24/17 21:56 Alprazolam (Xanax) 0.25 mg Q8H PRN PO ANXIETY 06/25/17 09:15 06/26/17 04:16 Temazepam (Restoril) 15 mg HS PRN PO INSOMNIA 06/25/17 09:15 06/25/17 21:18 Objective Remarks GENERAL: Anxious middle aged female, sitting up on stretcher in nad. SKIN: Warm and dry. HEAD: Normocephalic. EYES: No injection or drainage. NECK: Supple, trachea midline. CARDIOVASCULAR: Regular rate and rhythm RESPIRATORY: Breath sounds equal bilaterally. No accessory muscle use. GASTROINTESTINAL: Abdomen soft, non-tender, nondistended. EXTREMITIES: No cyanosis NEUROLOGICAL: awake and alert. normal speech. moving extremities. Assessment/Plan Problem List: (1) Lung mass ICD Codes: R91.8 - Other nonspecific abnormal finding of lung field Plan: --Mohamud Mallory following and plans to take patient for bronchoscopy --constellation of findings suspicious for metastatic lung cancer. Assessment 52y/o female with findings suspicious for metastatic lung cancer. history of depression, anxiety, posttraumatic stress disorder, lung disease, hypertension, and ulcerative colitis -- presented to [facility] on 06/23/2017 with left-sided abdominal and flank pain. Plan 1. bronchoscopy today 2. await biopsy 3. continue supportive care Attending Statement The exam, history, and the medical decision-making described in the above note were completed with the assistance of the mid-level provider. I reviewed and agree with the findings presented. I attest that I had a [id number] encounter with the patient on the same day, and personally performed and documented my assessment and findings in the medical record.52 yoF [facility] findings suspicious for metastatic lung cancer. S/p bronchoscopy with results pending. She will need close follow up in oncology clinic on discharge. Karina Artis Jun 26, 2017 09:55 Nory Kennedy MD June 27, 2017 09:01
[2017-06-26] MEDS: BUDESONIDE-FORMOTEROL 160/4.5 MCG INHALER INH SCH ×2 (10:33→21:24)
[2017-06-26] MEDS: DULoxetine HCl DR 60 MG CAP PO SCH ×2 (10:33→21:24)
--- NOTE | 2017-06-26 15:56 | HHI.PR ---
Subjective Remarks Patient has no complaints. She was asleep when I walked in and he was easily arousable. Denies any pain or shortness of breath, denies any hemoptysis, denies any nausea or vomiting. Objective Vitals Vital Signs Date Time Temp Pulse Resp B/P (MAP) Pulse Ox O2 Delivery O2 Flow Rate FiO2 06/26/17 12:57 98.2 92 18 137/87 (104) 94 06/26/17 12:00 77 06/26/17 08:00 75 06/26/17 05:15 16 06/26/17 04:09 98.3 91 16 126/92 (103) 94 06/26/17 04:03 73 06/26/17 00:02 75 06/25/17 23:08 98.7 77 16 127/80 (96) 94 06/25/17 20:09 89 06/25/17 19:50 98.6 88 18 146/86 (106) 95 06/25/17 17:25 97.5 85 20 145/84 (104) 96 06/25/17 16:24 97.7 89 20 132/89 (103) 97 I/O 06/25/17 06/25/17 06/25/17 06/26/17 06/26/17 06/26/17 07:00 15:00 23:00 07:00 15:00 23:00 Intake Total 120 ml 720 ml Output Total 900 ml Balance 120 ml -180 ml Intake Oral 120 ml 720 ml Output Urine Total 900 ml # Voids 1 Result Diagram: 06/25/17 2104 06/25/17 0637 Imaging Last Impressions Head CT 06/24/17 0000 Signed Impressions: Service Date/Time: Saturday, June 24, 2017 12:35 - CONCLUSION: No acute disease. Jeff Michel MD Chest CT 06/23/17 1728 Signed Impressions: Service Date/Time: Friday, June 23, 2017 17:26 - CONCLUSION: Large mass medial aspect right middle lobe, malignant til proven otherwise. Metastatic disease to left adrenal gland. Neeraj Norwood MD Abdomen/Pelvis CT 06/23/17 1641 Signed Impressions: Service Date/Time: Friday, June 23, 2017 17:18 - CONCLUSION: Large mass in the medial segment of the right middle lobe. Large left adrenal mass with numerous lymph nodes in the left periaortic region. Neeraj Norwood MD Objective Remarks General: Patient appears comfortable Lungs: Clear lungs bilaterally, unlabored breathing CV: Regular rate rhythm with no murmurs MSK: Moves all extremities Eyes: Extraocular motion intact A/P Problem List: (1) Adrenal mass ICD Code: E27.9 - Disorder of adrenal gland, unspecified (2) Abdominal pain ICD Code: R10.9 - Unspecified abdominal pain (3) Lung mass ICD Code: R91.8 - Other nonspecific abnormal finding of lung field (4) Flank pain ICD Code: R10.9 - Unspecified abdominal pain Assessment and Plan 52-year-old female admitted secondary to abdominal pain with findings of adrenal mass and lung mass, recent hemoptysis. Lung mass Adrenal mass Pulmonology following and will be performing a bronchoscopy today Oncology recommendations pending procedure/biopsy findings Abd pain - likely 2/2 mass/mets - pain control Hemoptysis Monitor for recurrence. None reported per patient today Avoid blood thinners Hypertension Continue baseline treatment Follow blood pressures Adjust treatments as needed Asthma General anxiety disorder Ulcerative colitis No exacerbations Continue baseline treatments GI did evaluate the patient recommends colonoscopy as an outpatient. Discharge Planning Bronchoscopy today Gisela Aaron MD Jun 26, 2017 15:56
--- NOTE | 2017-06-26 17:12 | HHI.PR ---
Subjective Remarks ALERT SITTING IN BRD NO SOB Objective Vital Signs Date Time Temp Pulse Resp B/P (MAP) Pulse Ox O2 Delivery O2 Flow Rate FiO2 06/26/17 15:50 98.4 82 18 127/83 (98) 95 06/26/17 12:57 98.2 92 18 137/87 (104) 94 06/26/17 12:00 77 06/26/17 08:00 75 06/26/17 05:15 16 06/26/17 04:09 98.3 91 16 126/92 (103) 94 06/26/17 04:03 73 06/26/17 00:02 75 06/25/17 23:08 98.7 77 16 127/80 (96) 94 06/25/17 20:09 89 06/25/17 19:50 98.6 88 18 146/86 (106) 95 06/25/17 17:25 97.5 85 20 145/84 (104) 96 I/O 06/25/17 06/25/17 06/25/17 06/26/17 06/26/17 06/26/17 07:00 15:00 23:00 07:00 15:00 23:00 Intake Total 120 ml 720 ml Output Total 900 ml Balance 120 ml -180 ml Intake Oral 120 ml 720 ml Output Urine Total 900 ml # Voids 1 Result Diagram: 06/25/17210306/25/17 0637 Objective Remarks GENERAL: SKIN: Warm and dry. HEAD: Atraumatic. Normocephalic. EYES: Pupils equal and round. No scleral icterus. No injection or drainage. ENT: No nasal bleeding or discharge. Mucous membranes pink and moist. NECK: Trachea midline. No JVD. CARDIOVASCULAR: Regular rate and rhythm. RESPIRATORY: No accessory muscle use. Clear to auscultation. Breath sounds equal bilaterally. GASTROINTESTINAL: Abdomen soft, non-tender, nondistended. Hepatic and splenic margins not palpable. MUSCULOSKELETAL: Extremities without clubbing, cyanosis, or edema. No obvious deformities. NEUROLOGICAL: Awake and alert. No obvious cranial nerve deficits. Motor grossly within normal limits. Five out of 5 muscle strength in the arms and legs. Normal speech. PSYCHIATRIC: Appropriate mood and affect; insight and judgment normal. Assessment and Plan Assessment and Plan IMPRESSION LUNG MASS COPD TOBACCO USE PLAN BRONCHODILATORS NEEDED BRONCHOSCOPY today may d/c post bronchoscopy office 1 week Mohamud Mallory MD Jun 26, 2017 17:12
[2017-06-26] MEDS ORDERED: DO NOT ADM ANY ANTICOAGULANT DRUGS PRN (17:24)
[2017-06-26] MEDS ORDERED: *RESP: ALBUTEROL 2.5 MG/3 ML NEB (PRN) PERIprocedural Use ONLY NEB ONE (17:27)
--- NOTE | 2017-06-26 17:33 | MP ---
cc: Mohamud Mallory MD DATE OF OPERATION: PROCEDURE PERFORMED: Fiberoptic bronchoscopy, flexible REASON FOR BRONCHOSCOPY: Right middle lobe lung mass of the lung, malignancy suspect. DESCRIPTION OF PROCEDURE: Fiberoptic bronchoscopy performed via LMA. Vocal cords appeared intact. Trachea mildly hyperemic, ace sharp. Right main stem bronchus, right upper, middle, and lower lobes, left main stem bronchus and upper lobes inspected. No obstructive pathology or mass lesion on the left. The right main stem bronchus was patent. Upper and lower lobes were patent. Some irregularity in the right middle lobe is noted. Washings, brushings and biopsy of the right middle lobe obtained, sent for cytological exam as well as pathological exam for the biopsy, which was placed in formalin. The procedure was well tolerated and the patient was transferred to recovery room in stable condition. IMPRESSION: 1. Irregularity of right middle lung lobe, underlying malignancy suspect. 2. Samples obtained as above. 3. Procedure was tolerated. 4. The patient transferred to recovery in stable condition. Mohamud Mallory MD WWW/BRIAN , 05:10 PM , 05:32 PM
--- NOTE | 2017-06-26 21:10 | EKG ---
Date Performed: 06/25/2017 Time Performed: 20:50:06 PTAGE: 52 years EKG: Sinus rhythm rSr'(V1) - probable normal variant Normal ECG NO PREVIOUS TRACING DOCTOR: Iggy Bhandari Interpretating Date/Time 06/26/2017 21:08:56
[2017-06-26] MEDS: MONTELUKAST SODIUM 10 MG TAB PO SCH (21:24)
[2017-06-26] MEDS: MORPHINE SULFATE 4 MG/ML INJ IV PUSH PRN (21:32)
[2017-06-26] MEDS: TEMAZEPAM 15 MG CAP PO PRN (21:32)
[2017-06-27] VITALS (7 sets, daily range): BP systolic 116–135; BP diastolic 82–93; PULSE 76–100; RESP 18–20; TEMP 97.8–98.6; O2SAT 93–96
[2017-06-27] MEDS: ACETAMINOPHEN/HYDROcodone 325 MG/7.5 MG TAB PO PRN ×3 (03:40→13:18)
[2017-06-27 06:39] LABS: HEMATOCRIT 37.4 % (35.0-46.0); HEMOGLOBIN 12.6 GM/DL (11.6-15.3)
[2017-06-27] MEDS: BUDESONIDE-FORMOTEROL 160/4.5 MCG INHALER INH SCH (07:53)
[2017-06-27] MEDS: DULoxetine HCl DR 60 MG CAP PO SCH (07:53)
[2017-06-27] MEDS: MORPHINE SULFATE 4 MG/ML INJ IV PUSH PRN (11:20)
[2017-06-27] MEDS ORDERED: IPRASOL INH (15:20)
[2017-06-27] MEDS ORDERED: HYDR-3580 PO (15:20)
--- NOTE | 2017-06-27 15:31 | HHI.DS ---
Discharge Summary Admission Date Jun 23, 2017 at 18:31 Discharge Date: June 27, 2017 Admitting Diagnosis LUNG MASS WITH METS TO LEFT ADRENAL (1) Adrenal mass ICD Code: E27.9 - Disorder of adrenal gland, unspecified (2) Abdominal pain ICD Code: R10.9 - Unspecified abdominal pain (3) Lung mass ICD Code: R91.8 - Other nonspecific abnormal finding of lung field (4) Flank pain ICD Code: R10.9 - Unspecified abdominal pain Procedures bronchoscopy Brief History - From Admission Mrs. Noel is a 52-year-old female. She came in the hospital specifically for left sided abdominal pain and flank pain. Etiology of her flank pain she thought would be related to diverticulitis. Imaging showed a right lung mass and left adrenal mass. Etiology at this point is suspected to be related to the left adrenal mass. Masses are suspected to be related to cancer. Patient smokes 1-2 packs of cigarettes per day. No history of cancer in the patient's family. She has a paternal grandmother that had COPD. She also has a paternal grandfather that had coronary artery disease. No other complaints today. No previous history of cancer. No active hemoptysis at this point but she reports that previously about a week ago she had hemoptysis. CBC/BMP: 06/27/17 0601 06/25/17 0637 Significant Findings Laboratory Tests Test 06/25/17 06:37 06/25/17 21:04 06/27/17 06:01 Hematocrit 34.9 % (35.0-46.0) Eosinophils (%) (Auto) 8.8 % (0.0-4.0) 8.5 % (0.0-4.0) Eosinophils # (Auto) 0.7 TH/MM3 (0-0.4) 0.7 TH/MM3 (0-0.4) Creatinine 0.47 MG/DL (0.50-1.00) Albumin 2.9 GM/DL (3.4-5.0) Aspartate Amino Transf (AST/SGOT) 11 U/L (15-37) Chloride Level 109 MEQ/L (98-107) Anion Gap 4 MEQ/L (5-15) Imaging Last Impressions Head CT 06/24/17 0000 Signed Impressions: Service Date/Time: Saturday, June 24, 2017 12:35 - CONCLUSION: No acute disease. Jeff Michel MD Chest CT 06/23/17 1728 Signed Impressions: Service Date/Time: Friday, June 23, 2017 17:26 - CONCLUSION: Large mass medial aspect right middle lobe, malignant til proven otherwise. Metastatic disease to left adrenal gland. Neeraj Norwood MD Abdomen/Pelvis CT 06/23/17 1641 Signed Impressions: Service Date/Time: Friday, June 23, 2017 17:18 - CONCLUSION: Large mass in the medial segment of the right middle lobe. Large left adrenal mass with numerous lymph nodes in the left periaortic region. Neeraj Norwood MD PE at Discharge General: Patient appears comfortable Lungs: Clear lungs bilaterally, unlabored breathing CV: Regular rate rhythm with no murmurs MSK: Moves all extremities Eyes: Extraocular motion intact Pt update on day of discharge Pt feels ok, complains of some back pain. eager to go home. has anxiety from waiting for the path results. states she will f/u w pulm and onc Hospital Course 52-year-old female admitted secondary to abdominal pain with findings of adrenal mass and lung mass, recent hemoptysis. she is s/p bronchoscopy. path results pending. Pt was evaluated by both pulm and onc and they recommended close outpatient f/u. Pt states she will f/u w them as she is eager to know the results and go for treatment. GI did evaluate the patient recommends colonoscopy as an outpatient. Pt Condition on Discharge: Stable Discharge Disposition: Discharge Home Discharge Time: > 30 minutes Discharge Instructions DIET: Follow Instructions for: Heart Healthy Diet Activities you can perform: Regular-No Restrictions Follow up Referrals: Oncology/Hematology - 1 Week PCP Follow-up - 1 Week Pulmonology - 1 Week New Medications: Ipratropium-Albuterol Neb (Duoneb) 0.5-2.5 Mg/3 Ml Neb 1 NEBULE INH Q8HR NEB PRN for SOB/WHEEZING, #90 NEBULE 0 Refills Hydrocodone/Acetaminophen (Hydrocodone-Acetamin 7.5-325) 7.5 Mg-325 Mg Tablet 1 TAB PO Q8HR PRN for pain, #15 Continued Medications: Albuterol 8.5 GM Inh (Proair Hfa 8.5 GM Inh) 90 Mcg/Act Aer 1 PUFF INH Q4H PRN for SHORTNESS OF BREATH, #1 INHALER 0 Refills 108 mcg/actuation Duloxetine DR (Cymbalta DR) 60 Mg Capdr 60 MG PO BID, #30 CAP 0 Refills Fluticasone-Salmeterol Inh (Advair Diskus Inh) 500-50 Mcg/Blist Aer 1 PUFF INH BID, #1 INHALER 0 Refills Rinse mouth after use. Lisinopril (Lisinopril) 20 Mg Tab 20 MG PO DAILY, #30 TAB 0 Refills Montelukast (Singulair) 10 Mg Tab 10 MG PO HS, #30 TAB 0 Refills Gisela Aaron MD June 27, 2017 15:31
--- NOTE | 2017-06-27 16:09 | HHI.PR ---
Subjective Remarks ALERT SITTING IN BRD NO SOB Objective Vital Signs Date Time Temp Pulse Resp B/P (MAP) Pulse Ox O2 Delivery O2 Flow Rate FiO2 06/27/17 15:00 85 06/27/17 12:21 81 06/27/17 11:09 97.8 89 18 116/84 (95) 96 06/27/17 07:44 98.6 97 18 124/82 (96) 93 06/27/17 07:00 80 06/27/17 04:00 98.2 89 20 135/93 (107) 95 06/27/17 04:00 76 06/27/17 00:00 84 06/27/17 00:00 98.0 100 20 135/88 (104) 96 06/26/17 20:00 102 06/26/17 20:00 98.0 100 22 135/88 (104) 96 06/26/17 18:26 114 06/26/17 18:00 98.6 95 23 118/74 (89) 95 Nasal Cannula 2 06/26/17 17:55 Nasal Cannula 2 06/26/17 17:45 101 18 126/72 (90) 93 Room Air 06/26/17 17:40 Room Air 06/26/17 17:30 116 30 105/74 (84) 96 Simple Mask 6 06/26/17 17:25 97.4 122 15 118/91 (100) 93 Simple Mask 6 I/O 06/26/17 06/26/17 06/26/17 06/27/17 06/27/17 06/27/17 07:00 15:00 23:00 07:00 15:00 23:00 Intake Total 720 ml 5 ml 450 ml Output Total 900 ml 500 ml Balance -180 ml 5 ml -50 ml Intake Oral 720 ml 5 ml 450 ml IV Total 0 ml Output Urine Total 900 ml 500 ml # Voids 3 Result Diagram: 06/27/17 0601 06/25/17 0637 Objective Remarks GENERAL: SKIN: Warm and dry. HEAD: Atraumatic. Normocephalic. EYES: Pupils equal and round. No scleral icterus. No injection or drainage. ENT: No nasal bleeding or discharge. Mucous membranes pink and moist. NECK: Trachea midline. No JVD. CARDIOVASCULAR: Regular rate and rhythm. RESPIRATORY: No accessory muscle use. Clear to auscultation. Breath sounds equal bilaterally. GASTROINTESTINAL: Abdomen soft, non-tender, nondistended. Hepatic and splenic margins not palpable. MUSCULOSKELETAL: Extremities without clubbing, cyanosis, or edema. No obvious deformities. NEUROLOGICAL: Awake and alert. No obvious cranial nerve deficits. Motor grossly within normal limits. Five out of 5 muscle strength in the arms and legs. Normal speech. PSYCHIATRIC: Appropriate mood and affect; insight and judgment normal. Assessment and Plan Assessment and Plan IMPRESSION LUNG MASS COPD TOBACCO USE PLAN BRONCHODILATORS NEEDED home today office 1 week Mohamud Mallory MD June 27, 2017 16:09
== END 2017-06-27 16:25 | disposition home or self-care (01) | DRG 180 ==
LOC: PHEFT 16:22 → PHEDA 18:31 → PH3B 19:41 → HCIN 06-25 17:13
PROVIDERS: ADMIT Hospitalist; ATTEND Hospitalist
PROC: 0B958ZX Drainage of Right Middle Lobe Bronchus, Via Natural or Artificial Opening Endoscopic, Diagnostic (ICD-10-PCS; principal; 2017-06-26)
PROC: 0B958ZZ Drainage of Right Middle Lobe Bronchus, Via Natural or Artificial Opening Endoscopic (ICD-10-PCS; 2017-06-26)
PROC: 0BDD8ZX Extraction of Right Middle Lung Lobe, Via Natural or Artificial Opening Endoscopic, Diagnostic (ICD-10-PCS; 2017-06-26)
DX: C34.2 Malignant neoplasm of middle lobe, bronchus or lung (principal); J18.9 Pneumonia, unspecified organism; C77.2 Secondary and unspecified malignant neoplasm of intra-abdominal lymph nodes; C79.72 Secondary malignant neoplasm of left adrenal gland; K51.911 Ulcerative colitis, unspecified with rectal bleeding; J44.0 Chronic obstructive pulmonary disease with (acute) lower respiratory infection; R04.2 Hemoptysis; I10 Essential (primary) hypertension; E27.9 Disorder of adrenal gland, unspecified; K64.9 Unspecified hemorrhoids; F17.210 Nicotine dependence, cigarettes, uncomplicated; F41.9 Anxiety disorder, unspecified; F41.1 Generalized anxiety disorder; F43.10 Post-traumatic stress disorder, unspecified; F32.9 Major depressive disorder, single episode, unspecified; Z82.49 Family history of ischemic heart disease and other diseases of the circulatory system; Z82.5 Family history of asthma and other chronic lower respiratory diseases
CPT/HCPCS: 31625; 70470; 71250; 74176; 80053; 82105; 82378; 83615; 83690; 85014; 85018; 85025; 85610; 85730; 86300; 86301; 86304; 86850; 86900; 86901; 88112; 88305; 88341; 88342; 93005; 94664; 96361; 96374; 96375; 96376; J2270; J2405; J3010; J7030; J7613; Q9967

== ENCOUNTER 2017-07-24 21:19 | Inpatient (IN) | payer MEDICAID ==
[~2017-07-24] VITALS: Ht 167.6 cm; Wt 83.6 kg
[~2017-07-24 21:19] MED LIST: ADVA500A INH; ALBUAER3 INH; CYMB60CA PO; HYDR-3580 PO; IPRASOL INH; LISI-515 PO; MONT10TA2 PO
[2017-07-24 21:21] VITALS: BP 123/80; PULSE 121; RESP 24; TEMP 98.5; O2SAT 98
[2017-07-24 21:45] VITALS: BP 104/71; PULSE 118; PULSE 126; RESP 20; O2SAT 97; O2SAT 98
[2017-07-24] MEDS ORDERED: ZOFR4TAB PO (21:53)
[2017-07-24] MEDS ORDERED: LEVO500T8 PO (21:53)
[2017-07-24] MEDS ORDERED: OXYC1CAP PO (21:53)
[2017-07-24] MEDS ORDERED: ERGO2000 PO (21:53)
[2017-07-24] MEDS ORDERED: ONDANSETRON ODT 4 MG TAB PO ONE (22:00)
[2017-07-24] MEDS ORDERED: SODIUM CHLORIDE 0.9% FLUSH 10 ML FLUSH IVF PRN (22:00)
[2017-07-24] MEDS ORDERED: KETOROLAC TROMETHAMINE 30 MG/ML (IVP) VIAL IV PUSH ONE (22:00)
[2017-07-24] MEDS ORDERED: MORPHINE SULFATE 4 MG/ML INJ IV PUSH ONE (22:00)
--- NOTE | 2017-07-24 22:12 | PD ---
HPI Chief Complaint: Pain: Acute or Chronic Time Seen by Provider: 21:27 Travel History International Travel<30 days: No Contact w/Intl Traveler<30days: No Traveled to known affect area: No History of Present Illness HPI The patient is a 52-year-old female who presents to the emergency department for right-sided chest pain and shortness of breath. The patient states she was sitting down earlier today, leaning forward to grab the tissue, which she felt a "pop "in the right sided aspect of her chest. She notes right- sided chest pain which is sharp, stabbing, associated shortness of breath. The patient was recently hospitalized and noted to have a right mediastinal mass in the lung as well as a mass on the top of the kidney. The patient states she had a bronchoscopy done by Dr. Mallory which revealed lung cancer. The patient does not know the type of lung cancer she was diagnosed with, however, is scheduled to have some type of test performed at [facility] tomorrow and to undergo her first chemotherapy on Monday. The patient does have a history of tobacco use, states she quit several weeks ago. Symptoms are moderate. She denies any current fever, chills, or sweats. PFSH Past Medical History Hx Anticoagulant Therapy: No Arthritis: Yes (bilateral hips) Asthma: Yes Autoimmune Disease: Yes (ulcerative colitis ) Anxiety: Yes Depression: Yes Cancer: No Cardiovascular Problems: Yes Diminished Hearing: No Endocrine: No Gastrointestinal Disorders: Yes (abdominal hernia Feb 2017) Genitourinary: No Hypertension: Yes Implanted Vascular Access Dvce: No Musculoskeletal: Yes Neurologic: No Psychiatric: Yes Reproductive: No Respiratory: Yes (Lung Cancer) Tetanus Vaccination: < 5 Years Influenza Vaccination: No ?: Not Menopausal: Yes : 2 Para: 1 : 1 Past Surgical History Abdominal Surgery: Yes (HERNIA REPAIR X 2) Appendectomy: Yes Thoracic Surgery: Yes (BIOPSY RIGHT LUNG) Other Surgery: Yes (THROAT SX) Social History Alcohol Use: Yes (OCC) Tobacco Use: Yes (QUIT 07/11/17) Substance Use: No Allergies-Medications (Allergen,Severity, Reaction): Coded Allergies: No Known Allergies (Unverified , 06/23/17) Reported Meds & Prescriptions Reported Meds & Active Scripts Active Duoneb (Ipratropium-Albuterol Neb) 0.5-2.5 Mg/3 Ml Neb 1 Nebule INH Q8HR NEB PRN Reported Levofloxacin 500 Mg Tablet 500 Mg PO DAILY PRN Vitamin D2 (Ergocalciferol) 2,000 Unit Tab 2,000 Units PO WEEKLY Zofran (Ondansetron HCl) 4 Mg Tab 4 Mg PO Q8HR PRN Oxycodone (Oxycodone HCl) 5 Mg Cap 5 Mg PO Q4H PRN Advair Diskus Inh (Fluticasone-Salmeterol Inh) 500-50 Mcg/Blist Aer 1 Puff INH BID Rinse mouth after use. Proair Hfa 8.5 GM Inh (Albuterol Sulfate) 90 Mcg/Act Aer 1 Puff INH Q4H PRN 108 mcg/actuation Cymbalta DR (Duloxetine HCl) 60 Mg Capdr 60 Mg PO BID Lisinopril 20 Mg Tab 20 Mg PO DAILY Singulair (Montelukast Sodium) 10 Mg Tab 10 Mg PO HS Review of Systems Except as stated in HPI: all other systems reviewed are Neg General / Constitutional: No: Fever HENT: No: Lightheadedness Cardiovascular: Positive: Chest Pain or Discomfort Respiratory: Positive: Cough, Shortness of Breath, Pleuritic Pain Gastrointestinal: No: Nausea, Vomiting, Abdominal Pain Musculoskeletal: Positive: Weakness Physical Exam Narrative GENERAL: Awake, alert, nontoxic-appearing 52-year-old female appears her stated age and appears in moderate discomfort. SKIN: Focused skin assessment warm/dry. HEAD: Atraumatic. Normocephalic. EYES: No injection or drainage. ENT: No nasal bleeding or discharge. Breath smells of tobacco. NECK: Trachea midline. No JVD. CARDIOVASCULAR: Regular, tachycardic with a heart rate of 120. No audible murmur. Palpation the right lateral chest wall reproduces symptoms. RESPIRATORY: No accessory muscle use. Clear to auscultation. Breath sounds equal bilaterally. GASTROINTESTINAL: Abdomen soft, non-tender, nondistended. No rebound tenderness. MUSCULOSKELETAL: No obvious deformities. No clubbing. No cyanosis. No edema. NEUROLOGICAL: Awake and alert. No obvious cranial nerve deficits. Motor grossly within normal limits. Normal speech. Nonfocal. PSYCHIATRIC: Anxious. Data Data Last Documented VS Vital Signs Date Time Temp Pulse Resp B/P (MAP) Pulse Ox O2 Delivery O2 Flow Rate FiO2 07/24/17 22:50 18 07/24/17 21:45 118 104/71 (82) 98 Room Air 07/24/17 21:21 98.5 Orders Orders Complete Blood Count With Diff (07/24/17 21:50) Comprehensive Metabolic Panel (07/24/17 21:50) Act Partial Throm Time (Ptt) (07/24/17 21:50) Prothrombin Time / Inr (Pt) (07/24/17 21:50) Magnesium (Mg) (07/24/17 21:50) Ckmb (Isoenzyme) Profile (07/24/17 21:50) Troponin I (07/24/17 21:50) Iv Access Insert/Monitor (07/24/17 21:50) Electrocardiogram (07/24/17 21:50) Ecg Monitoring (07/24/17 21:50) Oximetry (07/24/17 21:50) Oxygen Administration (07/24/17 21:50) Chest, Single Ap (07/24/17 21:50) Sodium Chloride 0.9% Flush (Ns Flush) (07/24/17 22:00) Lactic Acid (07/24/17 21:50) Morphine Inj (Morphine Inj) (07/24/17 22:00) Ketorolac Inj (Toradol Inj) (07/24/17 22:00) Ondansetron Odt (Zofran Odt) (07/24/17 22:00) Cefepime Inj (Maxipime Inj) (07/24/17 22:45) Azithromycin Inj (Zithromax Inj) (07/24/17 22:45) Admit To Inpatient (07/24/17 ) Vital Signs (Adult) Q4H (07/24/17 23:34) Activity Oob Ad Keren (07/24/17 23:34) Diet Heart Healthy (07/24/17 Dinner) Sodium Chloride 0.9% Flush (Ns Flush) (07/24/17 23:45) Sodium Chloride 0.9% Flush (Ns Flush) (07/25/17 09:00) Acetaminophen (Tylenol) (07/24/17 23:45) Resp Oxygen Shawn C Titrat 1-4 L (07/24/17 ) Enoxaparin Inj (Lovenox Inj) (07/24/17 23:45) Naloxone Inj (Narcan Inj) (07/24/17 23:45) Magnesium Hydroxide Liq (Milk Of Magnesi (07/24/17 23:45) Sennosides (Senokot) (07/24/17 23:45) Bisacodyl Supp (Dulcolax Supp) (07/24/17 23:45) Lactulose Liq (Lactulose Liq) (07/24/17 23:45) Inpatient Certification (07/24/17 ) Ceftriaxone Inj (Rocephin Inj) (07/24/17 23:45) Azithromycin (Zithromax) (07/25/17 09:00) Consult Pulmonology (07/24/17 ) Hydromorphone Pf Inj (Dilaudid Pf Inj) (07/24/17 23:45) Acetamin-Hydrocod 325-5 Mg ([place]field 5-325 (07/24/17 23:45) Ondansetron Odt (Zofran Odt) (07/24/17 23:45) Hydromorphone Pf Inj (Dilaudid Pf Inj) (07/24/17 23:45) Hydromorphone Pf Inj (Dilaudid Pf Inj) (07/24/17 23:45) Admit Order (Ed Use Only) (07/24/17 23:49) Ct Pulmonary Angiogram (07/24/17 23:54) Labs Laboratory Tests Test 07/24/17 22:10 White Blood Count 13.1 TH/MM3 Red Blood Count 4.51 MIL/MM3 Hemoglobin 12.3 GM/DL Hematocrit 37.3 % Mean Corpuscular Volume 82.6 FL Mean Corpuscular Hemoglobin 27.3 PG Mean Corpuscular Hemoglobin Concent 33.0 % Red Cell Distribution Width 13.2 % Platelet Count 303 TH/MM3 Mean Platelet Volume 7.6 FL Neutrophils (%) (Auto) 66.6 % Lymphocytes (%) (Auto) 12.1 % Monocytes (%) (Auto) 8.0 % Eosinophils (%) (Auto) 10.1 % Basophils (%) (Auto) 3.2 % Neutrophils # (Auto) 8.7 TH/MM3 Lymphocytes # (Auto) 1.6 TH/MM3 Monocytes # (Auto) 1.1 TH/MM3 Eosinophils # (Auto) 1.3 TH/MM3 Basophils # (Auto) 0.4 TH/MM3 CBC Comment DIFF FINAL Differential Comment Prothrombin Time 10.3 SEC Prothromb Time International Ratio 1.0 RATIO Activated Partial Thromboplast Time 28.8 SEC Blood Urea Nitrogen 15 MG/DL Creatinine 0.84 MG/DL Random Glucose 114 MG/DL Total Protein 7.5 GM/DL Albumin 3.1 GM/DL Calcium Level 8.6 MG/DL Magnesium Level 1.8 MG/DL Alkaline Phosphatase 116 U/L Aspartate Amino Transf (AST/SGOT) 46 U/L Alanine Aminotransferase (ALT/SGPT) 23 U/L Total Bilirubin 0.4 MG/DL Sodium Level 131 MEQ/L Potassium Level 4.3 MEQ/L Chloride Level 97 MEQ/L Carbon Dioxide Level 22.9 MEQ/L Anion Gap 11 MEQ/L Estimat Glomerular Filtration Rate 71 ML/MIN Lactic Acid Level 1.7 mmol/L Total Creatine Kinase 33 U/L Troponin I 0.04 NG/ML MDM Medical Decision Making Medical Screen Exam Complete: Yes Emergency Medical Condition: Yes Medical Record Reviewed: Yes Interpretation(s) EKG reveals sinus tachycardia with a heart rate of 120. S1Q3 Laboratory Tests Test 07/24/17 22:10 White Blood Count 13.1 TH/MM3 Red Blood Count 4.51 MIL/MM3 Hemoglobin 12.3 GM/DL Hematocrit 37.3 % Mean Corpuscular Volume 82.6 FL Mean Corpuscular Hemoglobin 27.3 PG Mean Corpuscular Hemoglobin Concent 33.0 % Red Cell Distribution Width 13.2 % Platelet Count 303 TH/MM3 Mean Platelet Volume 7.6 FL Neutrophils (%) (Auto) 66.6 % Lymphocytes (%) (Auto) 12.1 % Monocytes (%) (Auto) 8.0 % Eosinophils (%) (Auto) 10.1 % Basophils (%) (Auto) 3.2 % Neutrophils # (Auto) 8.7 TH/MM3 Lymphocytes # (Auto) 1.6 TH/MM3 Monocytes # (Auto) 1.1 TH/MM3 Eosinophils # (Auto) 1.3 TH/MM3 Basophils # (Auto) 0.4 TH/MM3 CBC Comment DIFF FINAL Differential Comment Prothrombin Time 10.3 SEC Prothromb Time International Ratio 1.0 RATIO Activated Partial Thromboplast Time 28.8 SEC Blood Urea Nitrogen 15 MG/DL Creatinine 0.84 MG/DL Random Glucose 114 MG/DL Total Protein 7.5 GM/DL Albumin 3.1 GM/DL Calcium Level 8.6 MG/DL Magnesium Level 1.8 MG/DL Alkaline Phosphatase 116 U/L Aspartate Amino Transf (AST/SGOT) 46 U/L Alanine Aminotransferase (ALT/SGPT) 23 U/L Total Bilirubin 0.4 MG/DL Sodium Level 131 MEQ/L Potassium Level 4.3 MEQ/L Chloride Level 97 MEQ/L Carbon Dioxide Level 22.9 MEQ/L Anion Gap 11 MEQ/L Estimat Glomerular Filtration Rate 71 ML/MIN Lactic Acid Level 1.7 mmol/L Total Creatine Kinase 33 U/L Troponin I 0.04 NG/ML Last Impressions Chest X-Ray 07/24/170 Signed Impressions: CONCLUSION: Compared with prior CT there is increasing right basilar lung consolidation in the right effusion in patient with known right middle lobe mass and right-sided hilar and mediastinal adenopathy. CT pulmonary angiogram reveals there is pulmonary embolism within the right lower lobe branches in addition to 1 of the branches of the left lower lobe. There is a huge mass in the right middle lobe that measures 7.3 cm in size identified in the patient's prior CT examination almost certainly malignant. There is metastatic adenopathy within the mediastinum which has progressed since the prior exam, the largest area is a conglomerate of lymph nodes in the right paratracheal location measures 6.7 cm in size and these lymph nodes measured almost 2.9 cm previously. There is also subcarinal adenopathy which is malignant, measures 3.7 cm in size. There is significant mass-effect on the SVC and there is thrombus within the SVC as well. There is also significant mass-effect on the right pulmonary arteries and brachiocephalic vein. Large right pleural effusion is present not present previously. There are multiple masses within the liver difficult to accurately characterize. The largest one measures probably on the order of 3.8 cm in the right hepatic lobe. At least 3 separate malignant masses are seen. There is an approximate 7.4 cm left adrenal gland mass also metastatic in nature and there is also metastatic retroperitoneal adenopathy. There is a small approximate 1.9 cm right adrenal nodule could potentially be benign. Differential Diagnosis Differential diagnosis includes pneumothorax, malignant effusion, pulmonary embolism, pericarditis, myocarditis, hemothorax, anxiety. Narrative Course IV was established, labs are drawn and sent, and the patient was placed on cardiac telemetry monitoring and continuous pulse oximetry monitoring. EKG was ordered and interpreted. The patient was administered morphine, Toradol, Zofran , and IV fluids. Chest x-ray was obtained. The patient is tachycardic with right-sided pleuritic chest pain and recent diagnosis of cancer, therefore, CT pulmonary angiogram was ordered to evaluate for possible underlying pulmonary embolism. The patient's white count is mildly elevated at 13.4. The patient's lactic acid is unremarkable. The patient's troponin is less than 0.02. Chest x -ray does reveal right pleural effusion with possible right lower lobe consolidation, may be malignant effusion versus healthcare acquired pneumonia. Therefore, the patient was administered cefepime and Zithromax. I discussed the patient with the on-call medical service who agrees with admission. CT pulmonary angiogram reveals a large right pleural effusion and bilateral lower lobe pulmonary embolism as well as a thrombus in the SVC. The patient was placed on a heparin drip. The patient will be admitted to medical service. Critical Care Narrative Aggregate critical care time was 40 minutes. Time to perform other separately billable procedures was not included in the critical care time. My time did not include minutes spent treating any other patients simultaneously or on activities that did not directly contribute to the patient's treatment. The services I provided to this patient were to treat and/or prevent clinically significant deterioration that could result in: Anoxia, hypoxia, arrhythmia, cardiac arrest. I provided critical care services requiring my management, as noted below: Chart data review, documentation time, medication orders and management, vital sign assessments/reviewing monitor data, ordering and reviewing lab tests, ordering and interpreting/reviewing x-rays and diagnostic studies, care of the patient and discussion of the patient with the admitting physicians. Physician Communication Physician Communication I discussed the patient with Dr. Tyler who agrees with admission. Diagnosis Primary Impression: Pleural effusion, right Additional Impressions: Right lower lobe pneumonia Qualified Codes: J18.1 - Lobar pneumonia, unspecified organism Bilateral pulmonary embolism Acute superior vena cava thrombosis Admitting Information Admitting Physician Requests: Admit Disposition: DISCHARGE HOME Condition: Stable Ortega Culp MD July 24, 2017 22:12
[2017-07-24 22:22] LABS: AUTOMATED NEUTROPHIL # 8.7 TH/MM3 (1.8-7.7); BASOPHIL # 0.4 TH/MM3 (0-0.2); BASOPHIL % 3.2 % (0.0-2.0); EOSINOPHIL # 1.3 TH/MM3 (0-0.4); EOSINOPHIL % 10.1 % (0.0-4.0); HEMATOCRIT 37.3 % (35.0-46.0); HEMOGLOBIN 12.3 GM/DL (11.6-15.3); LYMPH % 12.1 % (9.0-44.0); LYMPHOCYTE # 1.6 TH/MM3 (1.0-4.8); MEAN CELL VOLUME 82.6 FL (80.0-100.0); MEAN CORPUSCULAR HEMOGLOBIN 27.3 PG (27.0-34.0); MEAN PLATELET VOLUME 7.6 FL (7.0-11.0); MONOCYTE # 1.1 TH/MM3 (0-0.9); NEUT % 66.6 % (16.0-70.0); PLATELET COUNT 303 TH/MM3 (150-450); RED BLOOD COUNT 4.51 MIL/MM3 (4.00-5.30); RED CELL DISTRIBUTION WIDTH 13.2 % (11.6-17.2); WHITE BLOOD COUNT 13.1 TH/MM3 (4.0-11.0)
--- NOTE | 2017-07-24 22:23 | RADRPT ---
EXAM DATE: 07/24/2017 10:09 PM EDT AGE/SEX: 52 years / Female INDICATIONS: Short of breath CLINICAL DATA: This is the patient's initial encounter. Patient reports that signs and symptoms have been present for 1 day and indicates a pain score of 2/10. MEDICAL/SURGICAL HISTORY: Hypertension. Asthma. Carcinoma, lung. None. COMPARISON: [facility], CT THORAX W/O CONTRAST, 06/23/2017. . FINDINGS: There is a right hilar lung mass and right-sided hilar and mediastinal adenopathy. Compared with CT f rom June 23 there is an increase in right basilar lung consolidation and right pleural effusion. Lef t lung remains clear. No pneumothorax. CONCLUSION: Compared with prior CT there is increasing right basilar lung consolidation in the right effusion in patient with known right middle lobe mass and right-sided hilar and mediastinal adenopathy. Electronically signed by: Jose Ferreira MD 07/24/2017 10:21 PM EDT
[2017-07-24 22:29] LABS: CHLORIDE 97 MEQ/L (98-107); SODIUM (NA) 131 MEQ/L (136-145)
[2017-07-24 22:32] LABS: ALBUMIN 3.1 GM/DL (3.4-5.0); BICARBONATE 22.9 MEQ/L (21.0-32.0); CALCIUM 8.6 MG/DL (8.5-10.1)
[2017-07-24 22:33] LABS: BLOOD UREA NITROGEN 15 MG/DL (7-18); GLUCOSE,RANDOM 114 MG/DL (74-106); MAGNESIUM 1.8 MG/DL (1.5-2.5)
[2017-07-24 22:34] LABS: PROTHROMBIN TIME - PATIENT 10.3 SEC (9.8-11.6)
[2017-07-24 22:35] LABS: ALT (GPT) 23 U/L (10-53); AST (GOT) 46 U/L (15-37)
[2017-07-24 22:36] LABS: CREATININE 0.84 MG/DL (0.50-1.00); GLOMERULAR FILTRATION RATE 71 ML/MIN (>89)
[2017-07-24 22:37] LABS: TOTAL BILIRUBIN ADULT 0.4 MG/DL (0.2-1.0); TOTAL PROTEIN 7.5 GM/DL (6.4-8.2)
[2017-07-24 22:38] LABS: ALKALINE PHOSPHATASE 116 U/L (45-117)
[2017-07-24 22:41] LABS: TROPONIN I 0.04 NG/ML (0.02-0.05)
[2017-07-24 22:45] VITALS: BP 107/71; PULSE 116; RESP 18; O2SAT 96
[2017-07-24] MEDS ORDERED: AZITHROMYCIN INJ 500 MG in SODIUM CHLOR 0.9% 250 ML INJ 250 ML IV ONE (22:45)
[2017-07-24] MEDS ORDERED: CEFEPIME INJ 2,000 MG in SODIUM CHLORIDE 0.9% INJ 100 ML IV ONE (22:45)
[2017-07-24] MEDS ORDERED: IOHEXOL 350 MG/ML 10 ML VIAL (for RAD DIAG) IVCONTRAST ONE (23:43)
[2017-07-24] MEDS ORDERED: HYDROmorphone HCL PF 2 MG/ML VIAL IV PUSH ONE ×2 (23:45)
[2017-07-24] MEDS ORDERED: ACETAMINOPHEN 325 MG TAB PO PRN (23:45)
[2017-07-24] MEDS ORDERED: ONDANSETRON ODT 4 MG TAB PO PRN (23:45)
[2017-07-24] MEDS ORDERED: ENOXAPARIN SODIUM 40 MG/0.4 ML SYRINGE SQ SCH (23:45)
[2017-07-24] MEDS ORDERED: HYDROmorphone HCL PF 1 MG/ML VIAL IV PUSH ONE (23:45)
[2017-07-24] MEDS ORDERED: SENNOSIDES 8.6 MG TAB PO PRN (23:45)
[2017-07-24] MEDS ORDERED: MAGNESIUM HYDROXIDE SUSP 30 ML CUP PO PRN (23:45)
[2017-07-24] MEDS ORDERED: SODIUM CHLORIDE 0.9% FLUSH 10 ML FLUSH IV FLUSH PRN (23:45)
[2017-07-24] MEDS ORDERED: BISACODYL 10 MG SUPP RECTAL PRN (23:45)
[2017-07-24] MEDS ORDERED: NALOXONE HCL 0.4 MG/ML AMP IV PUSH PRN (23:45)
[2017-07-24] MEDS ORDERED: LACTULOSE SYRUP 20 GM/30 ML CUP PO PRN (23:45)
[2017-07-25] VITALS (18 sets, daily range): BP systolic 117–133; BP diastolic 65–78; PULSE 76–102; RESP 16–32; TEMP 97.4–98.7; O2SAT 92–98
[2017-07-25] MEDS ORDERED: METOCLOPRAMIDE HCL 10 MG/2 ML VIAL IV PUSH ONE (00:45)
--- NOTE | 2017-07-25 00:46 | RADRPT ---
EXAM DATE: 07/25/2017 12:36 AM EDT AGE/SEX: 52 years / Female INDICATIONS: Shortness of breath. Right pleural effusion. Evaluate for embolism. CLINICAL DATA: This is the patient's initial encounter. Patient reports that signs and symptoms have been present for 3 days and indicates a pain score of 10/10. MEDICAL/SURGICAL HISTORY: Carcinoma, lung. Hypertension. . Hiatal hernia. Right lung biopsy. RADIATION DOSE: 21.84 CTDI (mGy) COMPARISON: [facility], CT THORAX W/O CONTRAST, 06/23/2017. . TECHNIQUE: Volumetric scanning was performed using a multi-row detector CT scanner during bolus infu mendez of 71 ml Omnipaque 350 (iohexol) nonionic water-soluble contrast as a single exam dose. The jessica a was post processed with a variety of visualization algorithms including full volume maximum intensi ty projection and sliding thin slab reformation. Using automated exposure control and adjustment of the mA and/or kV according to patient size, radiation dose was kept as low as reasonably achievable t o obtain optimal diagnostic quality images. FINDINGS: There is pulmonary embolus within right lower lobe branches in addition to one of the branches of lef t lower lobe. There is a huge mass in the right middle lobe measures 7.3 cm in size identified in the patient's prior CT examination almost certainly malignant. There is metastatic adenopathy within the mediastinum which has progressed since the prior exam the largest area is a conglomerate of lymph no libby in right paratracheal location measures 6.7 cm in size and these lymph nodes measured almost 2.9 cm previously. There is also subcarinal adenopathy which is malignant measures 3.7 cm in size. There is significant mass effect on the SVC and there is thrombus within the SVC as well. There is also sig nificant mass effect on the right pulmonary arteries and brachiocephalic vein. Large right pleural ef fusion is present not present previously. There are multiple masses within the liver difficult to acc urately characterize the largest one measures probably on the order of 3.8 cm in right hepatic lobe. At least 3 separate malignant masses are seen. There is an approximate 7.4 cm left adrenal gland mass also metastatic in nature and there is also metastatic retroperitoneal adenopathy. There is a small approximate 1.9 cm right adrenal nodule could potentially be benign. CONCLUSION: 1. Right middle lobe malignant bronchogenic carcinoma with worsening metastatic adenopathy within th e mediastinum. 2. Metastatic disease involving the left adrenal gland and there is also worsening metastatic adenop athy in the retroperitoneum since the prior exam. 3. Multiple metastatic masses in the liver not present on the prior study. 4. Right pleural effusion not present previously. 5. Pulmonary embolus within bilateral lower lobe branches. 6. Thrombus within the SVC. Electronically signed by: Mauricio Lackey MD 07/25/2017 12:45 AM EDT
[2017-07-25] MEDS ORDERED: HEPARIN - 10,000 UNITS/ML IV ADDITIVE IV PUSH STA (00:52)
[2017-07-25] MEDS: cefTRIAXone INJ 2,000 MG in SODIUM CHLORIDE 0.9% INJ 100 ML IV SCH ×2 (02:47→23:38)
[2017-07-25] MEDS: HEPARIN-D5W 25,000 U/250 ML 250 ML IV PRN ×2 (03:05→17:54)
[2017-07-25] MEDS: ACETAMINOPHEN/HYDROcodone 325 MG/5 MG TAB PO PRN ×4 (03:18→23:38)
[2017-07-25] MEDS ORDERED: HYDROmorphone HCL PF 2 MG/ML VIAL IV PUSH ONE (06:45)
[2017-07-25] MEDS ORDERED: RESP: ALBUTEROL 2.5 MG/3 ML NEB (PRN) NEB (06:45)
[2017-07-25] MEDS ORDERED: HEPARIN - 10,000 UNITS/ML IV ADDITIVE IV PUSH PRN (07:00)
[2017-07-25] MEDS: SODIUM CHLORIDE 0.9% FLUSH 10 ML FLUSH IV FLUSH SCH ×2 (08:05→21:10)
[2017-07-25] MEDS: AZITHROMYCIN 250 MG TAB PO SCH (08:06)
[2017-07-25] MEDS ORDERED: PNEUMOCOCCAL POLYVALENT INJ 25 MCG/0.5 ML SYR IM ONE (09:00)
--- NOTE | 2017-07-25 11:52 | HHI.HP ---
[facility] No Primary Care Physician Admission Diagnosis Right pleural effusion, right lower lobe pneumonia, SIRS Diagnoses: (1) Bilateral pulmonary embolism (2) Right lower lobe pneumonia (3) Pleural effusion, right (4) Acute superior vena cava thrombosis Chief Complaint: Worsening shortness of breath and right-sided chest pain Travel History International Travel<30 Days: No Contact w/Intl Traveler <30 Da: No Traveled to Known Affected Are: No Sepsis Criteria SIRS Criteria (2 or more): Heart rate over 90, RR > 20 or PaCO2 < 32, WBC > 40648, < 4000 or > 10% bands Sepsis Criteria (SIRS+source): Infect source susp/known Criteria Outcome: Meets sepsis criteria History of Present Illness Written by Destinee Szymanski, acting as scribe for Dr. Sanders on 07/25/17 at 11:52. This is a 52-year-old female patient with a known medical history of hypertension, recently diagnosed metastatic lung cancer, COPD generalized anxiety disorder and tobacco abuse who presented to the ED with complaints of worsening shortness of breath and right-sided chest pain. Patient states that yesterday afternoon while reaching over to grab the tissue she felt a "pop" in her right sided chest area, and at that time developed a sudden sharp stabbing pain with associated shortness of breath. The pain is worse with movement and is better with medications. Patient denies any recent fever, chills, abdominal pain, nausea, vomiting, diarrhea or dysuria. She does admit to low energy and fatigue. Patient does admit to being hospitalized 3 weeks ago and upon review of records patient was seen by oncology and pulmonology and at that time was diagnosed with metastatic lung cancer to the abdominal lymph nodes in the left adrenal gland. Patient underwent a bronchoscopy and biopsy with Dr. Mallory. Patient last saw him a couple weeks ago and was due to see the oncologist tomorrow for her first chemotherapy session. It should be noted that patient does admit to a history of tobacco abuse, states she quit 2 weeks ago after her diagnosis of cancer. Review of Systems Constitutional: COMPLAINS OF: Chills, DENIES: Diaphoretic episodes, Fatigue, Fever Eyes: DENIES: Diplopia Respiratory: COMPLAINS OF: Cough, Sputum production, Shortness of breath Cardiovascular: COMPLAINS OF: Chest pain (Right-sided), Dyspnea on Exertion, DENIES: Lower Extremity Edema Gastrointestinal: DENIES: Abdominal pain, Black stools, Bloody stools, Constipation, Diarrhea, Nausea, Vomiting Musculoskeletal: DENIES: Joint pain Integumentary: DENIES: Abnormal pigmentation Hematologic/lymphatic: DENIES: Bruising Immunologic/allergic: DENIES: Eczema Neurologic: DENIES: Abnormal gait Psychiatric: COMPLAINS OF: Anxiety Except as stated in HPI: all other systems reviewed are Neg Past Family Social History Past Medical History Asthma Hypertension General anxiety disorder Ulcerative colitis Past Surgical History Hernia repair 2 Appendectomy Throat surgery Reported Medications Active Duoneb (Ipratropium-Albuterol Neb) 0.5-2.5 Mg/3 Ml Neb 1 Nebule INH Q8HR NEB PRN Reported Levofloxacin 500 Mg Tablet 500 Mg PO DAILY PRN Vitamin D2 (Ergocalciferol) 2,000 Unit Tab 2,000 Units PO WEEKLY Zofran (Ondansetron HCl) 4 Mg Tab 4 Mg PO Q8HR PRN Oxycodone (Oxycodone HCl) 5 Mg Cap 5 Mg PO Q4H PRN Advair Diskus Inh (Fluticasone-Salmeterol Inh) 500-50 Mcg/Blist Aer 1 Puff INH BID Rinse mouth after use. Proair Hfa 8.5 GM Inh (Albuterol Sulfate) 90 Mcg/Act Aer 1 Puff INH Q4H PRN 108 mcg/actuation Cymbalta DR (Duloxetine HCl) 60 Mg Capdr 60 Mg PO BID Lisinopril 20 Mg Tab 20 Mg PO DAILY Singulair (Montelukast Sodium) 10 Mg Tab 10 Mg PO HS Allergies: Coded Allergies: No Known Allergies (Unverified , 06/23/17) Active Ordered Medications Current Medications Medications (Trade) Dose Ordered Sig/Amy Route Start Time Stop Time Status Last Admin (NS Flush) 2 ml UNSCH PRN IV FLUSH 07/24/17 23:45 (NS Flush) 2 ml BID IV FLUSH 07/25/17 09:00 07/25/17 08:05 (Tylenol) 650 mg Q4H PRN PO 07/24/17 23:45 (Narcan Inj) 0.4 mg UNSCH PRN IV PUSH 07/24/17 23:45 (Milk Of Magnesia Liq) 30 ml Q12H PRN PO 07/24/17 23:45 (Senokot) 17.2 mg Q12H PRN PO 07/24/17 23:45 (Dulcolax Supp) 10 mg DAILY PRN RECTAL 07/24/17 23:45 (Lactulose Liq) 30 ml DAILY PRN PO 07/24/17 23:45 Ceftriaxone Sodium 2000 mg/ Sodium Chloride 100 ml @ 200 mls/hr Q24H IV 07/24/17 23:45 07/25/17 02:47 (Zithromax) 500 mg DAILY PO 07/25/17 09:00 07/25/17 08:06 ([place] 5-325 Mg) 1 tab Q6H PRN PO 07/24/17 23:45 07/25/17 11:26 (Zofran Odt) 4 mg Q6H PRN PO 07/24/17 23:45 07/25/17 04:26 (Heparin Inj) 5,000 units UNSCH PRN IV PUSH 07/25/17 07:00 (Heparin Inj) 2,500 units UNSCH PRN IV PUSH 07/25/17 07:00 Heparin Sodium/ Dextrose 250 ml @ 15 mls/hr TITRATE PRN IV 07/25/17 01:00 07/25/17 03:05 (Albuterol Neb) 2.5 mg Q2HR NEB PRN NEB 07/25/17 06:45 07/25/17 11:24 Family History COPD in paternal grandmother Coronary artery disease in maternal grandfather Social History Patient usually smokes 1-2 packs per day but states she quit 2 weeks ago. Occasional alcohol use No illicit drug abuse Physical Exam Vital Signs Vital Signs Date Time Temp Pulse Resp B/P (MAP) Pulse Ox O2 Delivery O2 Flow Rate FiO2 07/25/17 09:00 92 07/25/17 08:00 76 07/25/17 07:43 97.8 80 26 133/76 (95) 98 07/25/17 07:40 96 Nasal Cannula 2.00 07/25/17 07:00 88 07/25/17 06:00 84 24 95 07/25/17 05:33 86 31 119/77 (91) 96 07/25/17 04:30 97 Nasal Cannula 2.00 07/25/17 04:00 84 25 94 07/25/17 02:50 97.6 84 25 133/65 (87) 95 07/25/17 02:45 07/25/17 02:25 89 16 119/77 (91) 95 Room Air 07/25/17 01:30 94 21 07/25/17 00:30 16 07/25/17 00:15 98.7 98 16 117/76 (90) 97 Room Air 07/24/17 23:30 18 07/24/17 22:50 18 07/24/17 22:45 116 18 107/71 (83) 96 Room Air 07/24/17 21:45 126 20 104/71 (82) 97 Room Air 07/24/17 21:45 118 20 104/71 (82) 98 Room Air 07/24/17 21:45 20 98 Room Air 07/24/17 21:45 98 Room Air 07/24/17 21:21 98.5 121 24 123/80 (94) 98 Physical Exam GENERAL: Well-developed, well-nourished patient with complaints of right sided chest discomfort with every movement, tearful and anxious SKIN: Warm and dry. No rash. HEAD: Normocephalic. Atraumatic. EYES: Pupils equal and round. No scleral icterus. No injection or drainage. ENT: No nasal bleeding or discharge. Mucous membranes pink and moist. NECK: Supple. Trachea midline. CARDIOVASCULAR: Regular rate and rhythm. S1, S2 noted. No murmur appreciated. RESPIRATORY: No accessory muscle use. Rhonchi throughout right posterior lung griffith. Left lung clear to auscultation. Breath sounds equal bilaterally. GASTROINTESTINAL: Abdomen soft, non-tender, nondistended. Normoactive bowel sounds x4. MUSCULOSKELETAL: No obvious deformities. Extremities without clubbing, cyanosis , or edema. NEUROLOGICAL: Awake and alert. No obvious cranial nerve deficits. Motor grossly within normal limits. 5/5 muscle strength in bilateral upper and lower extremities. Normal speech. PSYCHIATRIC: Appropriate mood and affect; insight and judgment normal. Laboratory Laboratory Tests Test 07/24/17 22:10 07/25/17 09:10 White Blood Count 13.1 Red Blood Count 4.51 Hemoglobin 12.3 Hematocrit 37.3 Mean Corpuscular Volume 82.6 Mean Corpuscular Hemoglobin 27.3 Mean Corpuscular Hemoglobin Concent 33.0 Red Cell Distribution Width 13.2 Platelet Count 303 Mean Platelet Volume 7.6 Neutrophils (%) (Auto) 66.6 Lymphocytes (%) (Auto) 12.1 Monocytes (%) (Auto) 8.0 Eosinophils (%) (Auto) 10.1 Basophils (%) (Auto) 3.2 Neutrophils # (Auto) 8.7 Lymphocytes # (Auto) 1.6 Monocytes # (Auto) 1.1 Eosinophils # (Auto) 1.3 Basophils # (Auto) 0.4 CBC Comment DIFF FINAL Differential Comment Prothrombin Time 10.3 Prothromb Time International Ratio 1.0 Activated Partial Thromboplast Time 28.8 36.2 Blood Urea Nitrogen 15 Creatinine 0.84 Random Glucose 114 Total Protein 7.5 Albumin 3.1 Calcium Level 8.6 Magnesium Level 1.8 Alkaline Phosphatase 116 Aspartate Amino Transf (AST/SGOT) 46 Alanine Aminotransferase (ALT/SGPT) 23 Total Bilirubin 0.4 Sodium Level 131 Potassium Level 4.3 Chloride Level 97 Carbon Dioxide Level 22.9 Anion Gap 11 Estimat Glomerular Filtration Rate 71 Lactic Acid Level 1.7 Total Creatine Kinase 33 Troponin I 0.04 Result Diagram: 07/24/17220907/24/172209 Imaging Last Impressions CT Angiography 07/24/17 2350 Signed Impressions: CONCLUSION: 1. Right middle lobe malignant bronchogenic carcinoma with worsening metastati c adenopathy within the mediastinum. 2. Metastatic disease involving the left adrenal gland and there is also worse shelton metastatic adenopathy in the retroperitoneum since the prior exam. 3. Multiple metastatic masses in the liver not present on the prior study. 4. Right pleural effusion not present previously. 5. Pulmonary embolus within bilateral lower lobe branches. 6. Thrombus within the SVC. Chest X-Ray 07/24/172149 Signed Impressions: CONCLUSION: Compared with prior CT there is increasing right basilar lung consolidation in the right effusion in patient with known right middle lobe mass and right-sided hilar and mediastinal adenopathy. Septic Shock Reassessment Septic shock perfusion: reassessment completed Caprini VTE Risk Assessment Caprini VTE Risk Assessment: Mod/High Risk (score >= 2) Caprini Risk Assessment Model Point Value = 1 Point Value = 2 Point Value = 3 Point Value = 5 Age 41-60 Minor surgery BMI > 25 kg/m2 Swollen legs Varicose veins or History of unexplained or recurrent spontaneous Oral contraceptives or hormone replacement Sepsis (< 1 month) Serious lung disease, including pneumonia (< 1 month) Abnormal pulmonary function Acute myocardial infarction Congestive heart failure (< 1 month) History of inflammatory bowel disease Medical patient at bed rest Age 61-74 Arthroscopic surgery Major open surgery (> 45 min) Laparoscopic surgery (> 45 min) Malignancy Confined to bed (> 72 hours) Immobilizing plaster cast Central venous access Age >= 75 History of VTE Family history of VTE Factor V Leiden Prothrombin [id number] Lupus anticoagulant Anticardiolipin antibodies Elevated serum homocysteine Heparin-induced thrombocytopenia Other congenital or acquired thrombophilia Stroke (< 1 month) Elective arthroplasty Hip, pelvis, or leg fracture Acute spinal cord injury (< 1 month) Prophylaxis Regimen Total Risk Factor Score Risk Level Prophylaxis Regimen 0-1 Low Early ambulation 2 Moderate Order ONE of the following: *Sequential Compression Device (SCD) *Heparin 5000 units SQ BID 3-4 Higher Order ONE of the following medications: *Heparin 5000 units SQ TID *Enoxaparin/Lovenox 40 mg SQ daily (WT < 150 kg, CrCl > 30 mL/min) *Enoxaparin/Lovenox 30 mg SQ daily (WT < 150 kg, CrCl > 10-29 mL/min) *Enoxaparin/Lovenox 30 mg SQ BID (WT < 150 kg, CrCl > 30 mL/min) AND/OR *Sequential Compression Device (SCD) 5 or more Highest Order ONE of the following medications: *Heparin 5000 units SQ TID (Preferred with Epidurals) *Enoxaparin/Lovenox 40 mg SQ daily (WT < 150 kg, CrCl > 30 mL/min) *Enoxaparin/Lovenox 30 mg SQ daily (WT < 150 kg, CrCl > 10-29 mL/min) *Enoxaparin/Lovenox 30 mg SQ BID (WT < 150 kg, CrCl > 30 mL/min) AND *Sequential Compression Device (SCD) Assessment and Plan Problem List: (1) Acute superior vena cava thrombosis ICD Code: I82.210 - Acute embolism and thrombosis of superior vena cava Status: Acute (2) Bilateral pulmonary embolism ICD Code: I26.99 - Other pulmonary embolism without acute cor pulmonale Status: Acute (3) Right lower lobe pneumonia ICD Code: J18.1 - Lobar pneumonia, unspecified organism Status: Acute (4) Pleural effusion, right ICD Code: J90 - Pleural effusion, not elsewhere classified Status: Acute (5) Metastatic cancer to lung ICD Code: C78.00 - Secondary malignant neoplasm of unspecified lung Assessment and Plan This is a 52-year-old female patient with a known medical history of hypertension, recently diagnosed metastatic lung cancer, COPD generalized anxiety disorder and tobacco abuse who presented to the ED with complaints of worsening shortness of breath and right-sided chest pain. Bilateral pulmonary embolism Right lower lobe pneumonia Right pleural effusion History of chronic obstructive pulmonary disease Metastatic lung cancer abdominal lymph nodes as well as left adrenal gland - CTA showing right middle lobe malignant bronchogenic carcinoma with worsening metastasis; right pleural effusion; bilateral PE and thrombus within SVC. - Pulmonology consulted, follows with Dr. Mallory, input and recommendations pending. - Hematology/oncologist also consulted, known to Dr. Kennedy, input and recommendations pending. Was supposed to see tomorrow for first chemotherapy session. - Started on Ceftriaxone and Azithromycin, will continue. - Started on a Heparin drip. Will await hematology recommendations, possibly switch to Lovenox sq. - Control pain, [place] available as needed per pain scale. Morphine IV available for breakthrough pain. - Supplemental O2 to keep oxygen saturations > 90%. - DuoNebs as needed for wheezing/SOB/ - Supportive care. Hypertension, chronic: Continue home Lisinopril. Monitor BP trends. History of tobacco abuse: Encouraged cessation. History of depression: Continue home Cymbalta. Supportive care. DVT prophylaxis: SCDs. Heparin drip This note was transcribed by taras Szymanski. I, Dr. Marlon Sanders personally performed the history, physical exam, and medical decision making; and confirmed the accuracy of the information in the transcribed note. Authenticated by Dr. Marlon Sanders on 07/25/17 at 11:52. Code Status Full code Discussed Condition With Patient Problem Qualifiers (1) Right lower lobe pneumonia: Qualified Codes: J18.1 - Lobar pneumonia, unspecified organism Destinee Szymanski July 25, 2017 11:52 Marlon Sanders MD July 25, 2017 11:54
[2017-07-25] MEDS ORDERED: ALBUTEROL SULFATE 90 MCG/ACT HFA 8 GM INHALER INH PRN (13:00)
--- NOTE | 2017-07-25 13:42 | EKG ---
Date Performed: 07/24/2017 Time Performed: 21:59:59 PTAGE: 52 years EKG: SINUS TACHYCARDIA ABNORMAL RHYTHM ECG PREVIOUS TRACING : 06/25/2017 20.50 Q-waves in inferior leads are more prominent than the previ ous tracing. Rate has also increased with nonspecific ST-T wave changes. Cannot rule out ischemia. Cl inical correlation is recommended. DOCTOR: Lalit Dewey Interpretating Date/Time 07/25/2017 13:41:19
[2017-07-25] MEDS: MORPHINE SULFATE 2 MG/ML SYRINGE IV PUSH PRN (14:52)
[2017-07-25] MEDS ORDERED: [UNRECOGNIZED DRUG - OTHER] INH PRN (16:00)
[2017-07-25] MEDS ORDERED: LORazepam 2 MG/ML VIAL IV PUSH ONE (18:15)
--- NOTE | 2017-07-25 18:38 | MB ---
cc: Mohamud Mallory MD DATE: 07/25/2017 REASON FOR CONSULTATION: The patient with known history of lung CA, admitted with acute pulmonary embolism, A new right pleural effusion is noted. HISTORY OF PRESENT ILLNESS: The patient is a 52-year-old female with recent diagnosis of non-small cell lung cancer, complaining of right-sided sharp chest pain, underwent CT angiography with evidence of pulmonary emboli in both lower lungs. The patient as well is noted to have a right pleural effusion. She denies history of fever, chill, or hemoptysis. No history of TB or previous industrial exposure PAST MEDICAL HISTORY: 1. Lung cancer, as mentioned above for chemotherapy. 2. Hypertension. 3. Chronic obstructive pulmonary disease. 4. Anxiety. 5. Ulcerative colitis. PAST SURGICAL HISTORY: Previous history of appendectomy and hernia repair, had some form of surgery on her throat as well. MEDICATIONS AT HOME: DuoNeb, recently Levaquin. She uses Advair Diskus twice daily, p.r.n. albuterol., Cymbalta, lisinopril and Singulair. ALLERGIES: NONE KNOWN TO MEDICATION. FAMILY HISTORY: Noncontributory. OF SYSTEMS: As per HPI and past history, otherwise negative. SOCIAL HISTORY: Smoked 2 packs of cigarettes a day for over 30 years, stopped 2 weeks ago. He drinks alcohol socially. Does not use drugs. PHYSICAL EXAMINATION: GENERAL: The patient is alert. VITAL SIGNS: Temperature 98, pulse 86, respirations 18, blood pressure 120/74, oxygen saturation 95% on 2 liters oxygen. HEENT: Unremarkable. Eyes without icterus. NECK: Without adenopathy or thyroid enlargement. Central trachea. CHEST: Decreased breath sounds right base. CARDIAC: PMI not appreciated. S1, S2 audible. No murmur. No rub. ABDOMEN: Lax, normal bowel sounds. EXTREMITIES: No clubbing. LABORATORY DATA: Sodium 131, potassium 4.3, BUN 15, creatinine 0.8. IMAGING STUDIES: CT chest with bilateral pulmonary emboli, right pleural effusion, progressive lung CA with evidence of metastases. IMPRESSION: 1. Metastatic lung carcinoma. 2. Acute pulmonary embolism. 3. Question pneumonia. 4. Right pleural effusion. PLAN: The patient will be anticoagulated while in the hospital, a right thoracentesis would be appropriate prior to initiating chemotherapy in the next few days. Findings discussed and explained to the patient in detail. We will follow her course along with you. Continue her bronchodilators at present. Her prognosis is guarded. I do thank you for asking me to partake in Ms. Noel's care. MD JAMIL Nathan/LIDIA , 06:16 PM , 06:38 PM
--- NOTE | 2017-07-25 18:55 | MB ---
cc: Lilliam Manning MD, Jessica DATE: 07/25/2017 REFERRING PHYSICIAN: Dr. Destinee Szymanski CHIEF COMPLAINT: Destinee Szymanski requests a consultation for Ms. Noel regarding metastatic non-small cell lung cancer. HISTORY OF PRESENT ILLNESS: Ms. Noel is a 52-year-old woman with history of depression, anxiety, PTSD, COPD, chronic tobacco use, ulcerative colitis. She presents with left-sided abdominal flank pain. She has a mass in the adrenal gland measuring 5.5 x 6.7 cm. She has this mass in the chest measuring 6.2 x 7.9 cm in the right lobe surrounding obstructive pneumonitis. She has mediastinal adenopathy. Diagnostic bronchoscopic evaluation was performed by Dr. Mallory on 06/27. It showed a poorly differentiated adenocarcinoma consistent with lung primary. Diagnosis was established. She is well known to my partner, Dr. Nory Kennedy, s he performed an initial consultation 06/25/2017. Unfortunately, Ms. Noel's insurance does not allow her to be seen at [facility]. Through the conversation, apparently she is established with an oncologist in the community. To the best that she can remember it is Dr. Latha Nick. She reports that she is scheduled to start her chemotherapy tomorrow. She presented to the emergency room with chest pain. She was seen by Dr. Ortega Culp who coordinated a CT angiogram on 07/24 that showed pulmonary embolism with thin bilateral lower lobe branches of thrombus in the SVC. There is right-sided pleural effusion not present previously. There are multiple metastatic masses in the liver and metastatic disease in the left adrenal gland. Right middle lobe malignant appearing bronchogenic carcinoma has worsened adenopathy within the mediastinum. She has progression compared to the previous month. She was started on unfractionated heparin. She has questions about her diagnosis. She was given a copy of her pathology report. She states that nobody tells her anything. She reports having ulcerative colitis. She denies any acute bleeding from her colitis. She presented with hemoptysis initially. She denies any hemoptysis at present. We discussed monitoring for bleeding while on anticoagulant therapy. PAST MEDICAL HISTORY: As described above, chronic tobacco use, hypertension, COPD, PTSD, anxiety, depression, hypertension, ulcerative colitis, hemoptysis. Hyponatremia, question paraneoplastic syndrome, AST elevation, hypoalbuminemia. PAST SURGICAL HISTORY: Appendectomy, ENT, tooth removal, hernia repair, bronchoscopy. SOCIAL HISTORY: She smoked 1-2 packs per day for 30 years. She drinks 1 to 2 drinks a week. She has moved to [place] from [place] to be near her daughter. Her daughter has all of her information. FAMILY HISTORY: No significant family history of cancer. ALLERGIES: NO KNOWN DRUG ALLERGIES. CURRENT MEDICATIONS: 1. Lisinopril. 2. Cymbalta. 3. Singulair. 4. Symbicort 5. Duo Nebs 6. ProAir. 7. Morphine, 8. Zithromax 9. Albuterol 10. Unfractionated heparin. 11. Ceftriaxone. 12. Ondansetron p.r.n. PHYSICAL EXAMINATION: VITAL SIGNS: Temperature 97.4, heart rate 91, respiratory rate 21, blood pressure 131/68, saturation 97%. GENERAL: Ms. Noel is a well-developed, well-nourished woman who is frustrated, anxious appearing. HEENT: Her pupils are round, reactive to light and accommodation. Oropharynx is clear. NECK: Supple. LUNGS: Diminished breath sounds in the right lung field. CARDIOVASCULAR: Reveals tachycardia. ABDOMEN: Tender in the right lower quadrant. Abdomen with no guarding or rebound. LOWER EXTREMITIES: With no edema. NEUROLOGIC: Nonfocal. LABORATORY DATA: White blood cell count of 13.1. Sodium 131. BUN and creatinine are normal. ASSESSMENT AND PLAN: Ms. Noel is a 52-year-old woman with metastatic non-small cell lung cancer, adenocarcinoma histology. She has known metastatic disease to liver and to adrenal gland. She has metastatic disease to the mediastinum. She has a right lung mass. She is confirmed with diagnosis and we discussed the radiographic findings. A copy of the pathology report was provided for her so that she is aware of her diagnosis. She is encouraged to followup with Dr. Nick, since her insurance does not allow her to be seen at [facility]. Through a roundabout manner, she reports having been seen by Dr. Nick and that her first chemo is tomorrow. We will initiate her oral anticoagulant therapy. We will monitor closely for any bleeding, hemoptysis, melena or bright red blood per rectum, in light of her history of ulcerative colitis. If she is stable, I anticipate being able to start her on a new oral anticoagulant. She has normal renal function. We will give her information about the new oral anticoagulants. Ultimately, the choice of anticoagulation will rely on Dr. Nick, her primary oncologist. technical publications manager will be consulted to coordinate her followup appointment with Dr. Nick if she does not get out tomorrow. Her questions were answered to her satisfaction. ADDENDUM: The case was discussed with Dr. Cole regarding the patient's possible thoracentesis and since it is not an emergency, it was agreed that it is bates to continue the patient's anticoagulant therapy and observe her response to same and attempt to discharge her as soon as possible to initiate chemotherapy and a thoracentesis will be performed at a time or if it becomes urgent should the patient become symptomatic. MD COREY Feliciano/ , 06:21 PM , 06:53 PM [email or web address]
[2017-07-25] MEDS ORDERED: MONTELUKAST SODIUM 10 MG TAB PO SCH (21:00)
[2017-07-25] MEDS: DULoxetine HCl DR 60 MG CAP PO SCH (21:07)
[2017-07-25] MEDS: HEPARIN SODIUM - IV 10,000 UNITS/10 ML VIAL IV PUSH PRN (21:07)
[2017-07-25] MEDS: BUDESONIDE-FORMOTEROL 160/4.5 MCG INHALER INH SCH (21:12)
[2017-07-26] VITALS: BP 153/78; PULSE 95; RESP 18; TEMP 97.5; O2SAT 97
[2017-07-26] MEDS: HEPARIN SODIUM - IV 10,000 UNITS/10 ML VIAL IV PUSH PRN ×2 (02:57→09:34)
[2017-07-26 06:38] LABS: AUTOMATED NEUTROPHIL # 6.7 TH/MM3 (1.8-7.7); BASOPHIL # 0.1 TH/MM3 (0-0.2); BASOPHIL % 0.6 % (0.0-2.0); EOSINOPHIL # 1.4 TH/MM3 (0-0.4); EOSINOPHIL % 14.4 % (0.0-4.0); HEMATOCRIT 33.7 % (35.0-46.0); HEMOGLOBIN 11.3 GM/DL (11.6-15.3); LYMPH % 12.4 % (9.0-44.0); LYMPHOCYTE # 1.2 TH/MM3 (1.0-4.8); MEAN CELL VOLUME 82.9 FL (80.0-100.0); MEAN CORPUSCULAR HEMOGLOBIN 27.7 PG (27.0-34.0); MEAN CORPUSCULAR HGB CONC 33.5 % (32.0-36.0); MEAN PLATELET VOLUME 8.2 FL (7.0-11.0); MONO % 6.7 % (0.0-8.0); MONOCYTE # 0.7 TH/MM3 (0-0.9); NEUT % 65.9 % (16.0-70.0); PLATELET COUNT 276 TH/MM3 (150-450); RED BLOOD COUNT 4.06 MIL/MM3 (4.00-5.30); RED CELL DISTRIBUTION WIDTH 13.2 % (11.6-17.2); WHITE BLOOD COUNT 10.1 TH/MM3 (4.0-11.0)
[2017-07-26 06:48] LABS: CALCIUM 8.5 MG/DL (8.5-10.1)
[2017-07-26 06:49] LABS: BICARBONATE 23.5 MEQ/L (21.0-32.0)
[2017-07-26] MEDS: ACETAMINOPHEN/HYDROcodone 325 MG/5 MG TAB PO PRN (06:49)
[2017-07-26 06:52] LABS: CREATININE 0.5 MG/DL (0.50-1.00)
[2017-07-26 07:43] VITALS: O2SAT 93
[2017-07-26 07:50] VITALS: BP 147/73; PULSE 91; RESP 18; TEMP 96.7; O2SAT 96
[2017-07-26] MEDS: DULoxetine HCl DR 60 MG CAP PO SCH (08:35)
[2017-07-26] MEDS: BUDESONIDE-FORMOTEROL 160/4.5 MCG INHALER INH SCH (08:36)
[2017-07-26] MEDS: AZITHROMYCIN 250 MG TAB PO SCH (08:36)
[2017-07-26] MEDS: SODIUM CHLORIDE 0.9% FLUSH 10 ML FLUSH IV FLUSH SCH (08:37)
[2017-07-26] MEDS ORDERED: LISINOPRIL 20 MG TAB PO SCH (09:00)
[2017-07-26] MEDS: HEPARIN-D5W 25,000 U/250 ML 250 ML IV PRN (09:08)
--- NOTE | 2017-07-26 09:56 | HHI.PR ---
Subjective Remarks Follow-up metastases lung cancer/PE/right pleural effusion July 26, 2017-patient seen and examined, continued to complains of right sided pain and she is requesting stronger narcotics. Denies any significant shortness of breath. Afebrile. Objective Vitals Vital Signs Date Time Temp Pulse Resp B/P (MAP) Pulse Ox O2 Delivery O2 Flow Rate FiO2 07/26/17 07:50 96.7 91 18 147/73 (97) 96 07/26/17 07:43 93 21 07/26/17 00:45 18 07/26/17 00:00 97.5 95 18 153/78 (103) 97 07/25/17 20:07 97.7 97 18 122/78 (93) 95 07/25/17 19:30 95 21 07/25/17 16:00 97.4 91 21 131/68 (89) 97 07/25/17 15:13 20 07/25/17 15:00 102 07/25/17 11:51 97.4 88 32 121/77 (92) 92 I/O 07/25/17 07/25/17 07/25/17 07/26/17 07/26/17 07/26/17 07:00 15:00 23:00 07:00 15:00 23:00 Intake Total 870 ml 1040 ml 480 ml Output Total 225 ml 1050 ml Balance 645 ml -10 ml 480 ml Intake Oral 520 ml 1040 ml 480 ml IV Total 350 ml Output Urine Total 225 ml 1050 ml # Voids 1 3 Result Diagram: 07/26/17 0530 07/26/17 [address] Angiography 07/24/17 7493 Signed Impressions: CONCLUSION: 1. Right middle lobe malignant bronchogenic carcinoma with worsening metastati c adenopathy within the mediastinum. 2. Metastatic disease involving the left adrenal gland and there is also worse [place] metastatic adenopathy in the retroperitoneum since the prior exam. 3. Multiple metastatic masses in the liver not present on the prior study. 4. Right pleural effusion not present previously. 5. Pulmonary embolus within bilateral lower lobe branches. 6. Thrombus within the SVC. Chest X-Ray 07/24/17 2010 Signed Impressions: CONCLUSION: Compared with prior CT there is increasing right basilar lung consolidation in the right effusion in patient with known right middle lobe mass and right-sided hilar and mediastinal adenopathy. Objective Remarks GENERAL: NAD SKIN: Warm and dry. HEAD: Normocephalic. EYES: No scleral icterus. No injection or drainage. NECK: Supple, trachea midline. No JVD or lymphadenopathy. CARDIOVASCULAR: Regular rate and rhythm without murmurs, gallops, or rubs. RESPIRATORY: Breath sounds equal bilaterally. No accessory muscle use. GASTROINTESTINAL: Abdomen soft, non-tender, nondistended. MUSCULOSKELETAL: No cyanosis, or edema. BACK: Nontender without obvious deformity. + CVA tenderness right side. A/P Problem List: (1) Acute superior vena cava thrombosis ICD Code: I82.210 - Acute embolism and thrombosis of superior vena cava Status: Acute (2) Bilateral pulmonary embolism ICD Code: I26.99 - Other pulmonary embolism without acute cor pulmonale Status: Acute (3) Right lower lobe pneumonia ICD Code: J18.1 - Lobar pneumonia, unspecified organism Status: Acute (4) Pleural effusion, right ICD Code: J90 - Pleural effusion, not elsewhere classified Status: Acute (5) Metastatic cancer to lung ICD Code: C78.00 - Secondary malignant neoplasm of unspecified lung Assessment and Plan This is a 52-year-old female patient with a known medical history of hypertension, recently diagnosed metastatic lung cancer, COPD generalized anxiety disorder and tobacco abuse who presented to the ED with complaints of worsening shortness of breath and right-sided chest pain. Bilateral pulmonary embolism Right lower lobe pneumonia Right pleural effusion History of chronic obstructive pulmonary disease Metastatic lung cancer abdominal lymph nodes as well as left adrenal gland - CTA showing right middle lobe malignant bronchogenic carcinoma with worsening metastasis; right pleural effusion; bilateral PE and thrombus within SVC. -Appreciate input from pulmonology, Dr. Mallory -Appreciate input from hematology/oncologist also consulted, known to Dr. Kennedy, input and recommendations pending. Was supposed to see today 07/26/17 for first chemotherapy session. -Continue ceftriaxone and Azithromycin -Continue heparin drip. Patient will need to be switched to oral anticoagulation - Control pain, [place] available as needed per pain scale. Morphine IV available for breakthrough pain. - Supplemental O2 to keep oxygen saturations > 90%. - DuoNebs as needed for wheezing/SOB/ - Supportive care. Hypertension, chronic: Continue home Lisinopril. Monitor BP trends. History of tobacco abuse: Encouraged cessation. History of depression: Continue home Cymbalta. Supportive care. DVT prophylaxis: SCDs. Heparin drip Discharge Planning Discharge patient to home Condition on discharge: Improved Regular Diet as tolerated Ad Keren activity Rx written:see EMR Follow-up with primary care physician in 1week Follow-up with oncology Follow-up with pulmonary medicine Problem Qualifiers (1) Right lower lobe pneumonia: Qualified Codes: J18.1 - Lobar pneumonia, unspecified organism Marlon Sanders MD July 26, 2017 09:56
[2017-07-26] MEDS: MORPHINE SULFATE 2 MG/ML SYRINGE IV PUSH PRN (11:18)
[2017-07-26 11:44] VITALS: BP 118/85; PULSE 89; RESP 18; TEMP 96.6; O2SAT 97
--- NOTE | 2017-07-26 12:47 | HHI.DCPOC ---
Discharge Care Plan Diagnosis: (1) Metastatic cancer to lung (2) Pleural effusion, right (3) Right lower lobe pneumonia (4) Bilateral pulmonary embolism (5) Acute superior vena cava thrombosis Goals to Promote Your Health * To prevent worsening of your condition and complications * To maintain your health at the optimal level Directions to Meet Your Goals Take your medications as prescribed Follow your dietary instruction Follow activity as directed Keep your appointments as scheduled Take your immunizations and boosters as scheduled If your symptoms worsen call your PCP, if no PCP go to Urgent Care Center or Emergency Room Smoking is Dangerous to Your Health. Avoid second hand smoke Call the 24-hour hour crisis hotline for domestic abuse at [facility] Szymanski July 26, 2017 12:47
[2017-07-26] MEDS ORDERED: AZIT250T3 PO (12:50)
[2017-07-26] MEDS ORDERED: APIX5TAB PO (12:51)
[2017-07-26] MEDS ORDERED: NORC5TAB PO (12:56)
[2017-07-26] MEDS ORDERED: APIXABAN 5 MG TABLET PO ONE (14:00)
== END 2017-07-26 15:36 | disposition home or self-care (01) | DRG 175 ==
LOC: PHED 21:19 → PHEDA 23:52 → PHICU 07-25 02:43 → PH3B 07-25 15:41
PROVIDERS: ADMIT Hospitalist; ATTEND Hospitalist
DX: I26.99 Other pulmonary embolism without acute cor pulmonale (principal); J18.9 Pneumonia, unspecified organism; C78.7 Secondary malignant neoplasm of liver and intrahepatic bile duct; C79.72 Secondary malignant neoplasm of left adrenal gland; C34.91 Malignant neoplasm of unspecified part of right bronchus or lung; J44.0 Chronic obstructive pulmonary disease with (acute) lower respiratory infection; K51.90 Ulcerative colitis, unspecified, without complications; I82.210 Acute embolism and thrombosis of superior vena cava; I10 Essential (primary) hypertension; F41.1 Generalized anxiety disorder; F32.9 Major depressive disorder, single episode, unspecified; F43.10 Post-traumatic stress disorder, unspecified; Z87.891 Personal history of nicotine dependence
CPT/HCPCS: 71045; 71275; 80048; 80053; 82550; 83605; 83735; 84484; 85025; 85610; 85730; 90471; 90732; 93005; 94640; 94664; 96365; 96375; G0009; J0456; J0692; J0696; J1170; J1644; J1885; J2060; J2270; J2765; J7050; J7613; Q9967